=== PATIENT | female | born 1965 | race African-American/Black ===

== ENCOUNTER → 2016-12-27 | Outpatient (CLI) | payer MEDICARE, MEDICAID | LOC: RAD 17:09 | PROVIDERS: ATTEND Nurse Practitioner Family | DX: M54.5 Low back pain (principal) | CPT/HCPCS: 72114; 72200 ==

== ENCOUNTER → 2017-08-05 | Outpatient (CLI) | payer MEDICARE, MEDICAID ==
--- NOTE | 2017-08-05 19:04 | WOMENS IMAGING REPORT ---
EXAM DESCRIPTION: 3D SCREENING MAMMO BILAT COMPLETED DATE/TIME: 08/05/2017 11:20 am REASON FOR STUDY: SCREENING MAMMO Z12.31 ENCNTR SCREEN MAMMOGRAM FOR MALIGNANT NEOPLASM OF EDNA COMPARISON: Multiple since 2011 TECHNIQUE: Standard craniocaudal and mediolateral oblique views of each breast recorded using digita l acquisition and breast tomosynthesis. LIMITATIONS: None. FINDINGS: No masses, calcifications or architectural distortion. No areas of suspicion. Read with the assistance of CAD. .[facility] - R2 Cenova Version 1.3 .[facility] Imaging - R2 Cenova Version 1.3 .[facility] Imaging - R2 Cenova Version 2.4 .[facility] [place] R2 Cenova Version 2.4 .[facility] - R2 Carton Wrapper Version 9.2 IMPRESSION: NORMAL MAMMOGRAM. BIRADS 1. BREAST DENSITY: b. There are scattered areas of fibroglandular density. BIRAD: 1 NEGATIVE RECOMMENDATION: ROUTINE SCREENING Please continue yearly bilateral screening tomosynthesis in July 2018 COMMENT: The patient has been notified of the results by letter per MQSA requirements. Additional no tification policies are in place for contacting patient with suspicious or incomplete findings. Quality ID #225: The [employer] recommends an annual screening mammogram for women aged 40 years or over. This facility utilizes a reminder system to ensure that all patients receive reminder letters, and/or direct phone calls for appointments. This includes reminders for routine scr eening mammograms, diagnostic mammograms, or other Breast Imaging Interventions when appropriate. Th is patient will be placed in the appropriate reminder system. The [employer] (ACR) has developed recommendations for screening MRI of the breast s in certain patient populations, to be used in conjunction with mammography. Breast MRI surveillanc e may be appropriate for women with more than 20% lifetime risk of developing breast cancer as deter mined by genetic testing, significant family history of the disease, or history of mantle radiation f or Hodgkins Disease. ACR Practice Guidelines 2008. DBT Technology DBT is a type of tomographic mammography. With conventional mammography, overlapping breast tissue ma y make lesions difficult to detect, even with good compression. DBT uses an x-ray tube that rotates a round the breast, taking images at different angles. These images are then combined to create thin sl ices of the breast that the radiologist can view as a 3D reconstruction. The Ripl unit can perform full-field digital mammograms (2D imaging); or DBT (3D imaging); or both, in a combination mode that quickly performs both the mammogram and the tomosynthesis scan while the breast is still compressed. PQRS 6045F: Fluoroscopic imaging is not utilized for breast tomosynthesis. TECHNICAL DOCUMENTATION: FINDING NUMBER: (1) ASSESSMENT: (1) JOB ID: [id number] [employer]- All Rights Reserved
== END ==
LOC: WI 10:01
PROVIDERS: ATTEND Internal Medicine
DX: Z12.31 Encounter for screening mammogram for malignant neoplasm of breast (principal)
CPT/HCPCS: 77063; G0202; 77067

== ENCOUNTER → 2018-08-07 | Outpatient (CLI) | payer MEDICARE, MEDICAID ==
--- NOTE | 2018-08-07 11:36 | WOMENS IMAGING REPORT ---
EXAM DESCRIPTION: 3D SCREENING MAMMO BILAT COMPLETED DATE/TIME: 08/07/2018 11:21 am REASON FOR STUDY: BILATERAL SCREENING MAMMO 3D/Z12.31 Z12.31 ENCNTR SCREEN MAMMOGRAM FOR MALIGNANT NEOPLASM OF EDNA COMPARISON: 08/05/2017 and 12/28/2014. TECHNIQUE: Standard craniocaudal and mediolateral oblique views of each breast recorded using digita l acquisition and breast tomosynthesis. LIMITATIONS: None. FINDINGS: No masses, calcifications or architectural distortion. No areas of suspicion. Read with the assistance of CAD. .[facility] - R2 Cenova Version 1.3 .[facility] Imaging - R2 Cenova Version 1.3 .[facility] Imaging - R2 Cenova Version 2.4 .[facility] [place] R2 Cenova Version 2.4 .[facility] - R2 [employer] Meters Version 9.2 IMPRESSION: NORMAL MAMMOGRAM. BIRADS 1. BREAST DENSITY: b. There are scattered areas of fibroglandular density. BIRAD: 1 NEGATIVE RECOMMENDATION: ROUTINE SCREENING COMMENT: The patient has been notified of the results by letter per SA requirements. Additional no tification policies are in place for contacting patient with suspicious or incomplete findings. Quality ID #225: The [employer] recommends an annual screening mammogram for women aged 40 years or over. This facility utilizes a reminder system to ensure that all patients receive reminder letters, and/or direct phone calls for appointments. This includes reminders for routine scr eening mammograms, diagnostic mammograms, or other Breast Imaging Interventions when appropriate. Th is patient will be placed in the appropriate reminder system. The [employer] (ACR) has developed recommendations for screening MRI of the breast s in certain patient populations, to be used in conjunction with mammography. Breast MRI surveillanc e may be appropriate for women with more than 20% lifetime risk of developing breast cancer as deter mined by genetic testing, significant family history of the disease, or history of mantle radiation f or Hodgkins Disease. ACR Practice Guidelines 2008. DBT Technology DBT is a type of tomographic mammography. With conventional mammography, overlapping breast tissue ma y make lesions difficult to detect, even with good compression. DBT uses an x-ray tube that rotates a round the breast, taking images at different angles. These images are then combined to create thin sl ices of the breast that the radiologist can view as a 3D reconstruction. The [employer] unit can perform full-field digital mammograms (2D imaging); or DBT (3D imaging); or both, in a combination mode that quickly performs both the mammogram and the tomosynthesis scan while the breast is still compressed. PQRS 6045F: Fluoroscopic imaging is not utilized for breast tomosynthesis. TECHNICAL DOCUMENTATION: FINDING NUMBER: (1) ASSESSMENT: (1) JOB ID: [id number] [employer]- All Rights Reserved Reading location - IP/workstation name: [email or web address]
== END ==
LOC: WI 10:53
PROVIDERS: ATTEND Internal Medicine
DX: Z12.31 Encounter for screening mammogram for malignant neoplasm of breast (principal)
CPT/HCPCS: 77063; 77067

== ENCOUNTER → 2018-09-18 | Outpatient (CLI) | payer MEDICARE, MEDICAID ==
--- NOTE | 2018-09-18 15:17 | RADIOLOGY REPORT (SQ) ---
EXAM DESCRIPTION: CT ABD/PELVIS WITH IV ONLY COMPLETED DATE/TIME: 09/18/2018 1:40 pm REASON FOR STUDY: RIGHT LOWER QUADRANT PAIN R10.31 RIGHT LOWER QUADRANT PAIN COMPARISON: None. TECHNIQUE: CT scan of the abdomen and pelvis performed using helical scanning technique with dynamic intravenous contrast injection. No oral contrast. Images reviewed with lung, soft tissue, and bone windows. Reconstructed coronal and sagittal MPR images reviewed. Delayed images for evaluation of the urinary system also acquired. All images stored on PACS. All CT scanners at this facility use dose modulation, iterative reconstruction, and/or weight based d osing when appropriate to reduce radiation dose to as low as reasonably achievable (ALARA). [facility]: Dose Right [facility]: CareDose [facility]: Dose Right [facility]: Teradose 4D [facility]: WelVU CONTRAST TYPE AND DOSE: contrast/concentration: Isovue 350.00 mg/ml; Total Contrast Delivered: 100.0 ml; Total Saline Delivered: 72.0 ml RENAL FUNCTION: Creatinine 0.8 RADIATION DOSE: CT Rad equipment meets quality standard of care and radiation dose reduction techniq ues were employed. CTDIvol: 22.2 - 22.6 mGy. DLP: 2221 mGy-cm.. LIMITATIONS: None. FINDINGS: LOWER CHEST: There is limited opacification in the medial left base. LIVER: Normal size. No masses. No dilated ducts. SPLEEN: Normal size. No focal lesions. PANCREAS: No masses. No significant calcifications. No adjacent inflammation or peripancreatic fluid collections. Pancreatic duct not dilated. GALLBLADDER: No identified stones by CT criteria. No inflammatory changes to suggest cholecystitis. ADRENAL GLANDS: No significant masses or asymmetry. RIGHT KIDNEY AND URETER: No solid masses. No significant calcifications. No hydronephrosis or hyd roureter. LEFT KIDNEY AND URETER: No solid masses. No significant calcifications. No hydronephrosis or hydr oureter. AORTA AND VESSELS: No aneurysm. No dissection. Renal arteries, SMA, celiac without stenosis. RETROPERITONEUM: No retroperitoneal adenopathy, hemorrhage or masses. BOWEL AND PERITONEAL CAVITY: No masses or inflammatory changes. No free fluid or peritoneal masses. APPENDIX: Not identified. No pericecal inflammatory changes are present. PELVIS: There is a 7 cm well-circumscribed low-density mass in the left adnexal. This measures about 37 Hounsfield units. ABDOMINAL WALL: No masses. No hernias. BONES: No significant or acute findings. OTHER: No other significant finding. IMPRESSION: 1. Cannot exclude left lower lobe pneumonia. 2. There is no evidence of appendicitis. 3. 7 cm well-circumscribed left adnexal mass. Cannot exclude hemorrhagic ovarian cyst. Cannot excl ude ovarian neoplasm. Could conceivably represent a degenerated pedunculated uterine fibroid. COMMENT: Unsuccessfully attempted to call report to the ordering physician at 1511 hours on this marilia e. TECHNICAL DOCUMENTATION: JOB ID: [id number] Quality ID # 436: Final reports with documentation of one or more dose reduction techniques (e.g., Au tomated exposure control, adjustment of the mA and/or kV according to patient size, use of iterative reconstruction technique) 2010 [employer]- All Rights Reserved Reading location - IP/workstation name: [email or web address]
== END ==
LOC: RAD 13:10
PROVIDERS: ATTEND Internal Medicine
DX: R10.31 Right lower quadrant pain (principal); R19.00 Intra-abdominal and pelvic swelling, mass and lump, unspecified site
CPT/HCPCS: 74177; 82565

== ENCOUNTER → 2018-11-28 | Outpatient (CLI) | payer MEDICARE, MEDICAID ==
--- NOTE | 2018-11-28 16:29 | RADIOLOGY REPORT (SQ) ---
EXAM DESCRIPTION: CT CHEST WITHOUT COMPLETED DATE/TIME: 11/28/2018 2:49 pm REASON FOR STUDY: COPD (J44.9) J44.9 CHRONIC OBSTRUCTIVE PULMONARY DISEASE, UNSPECIFIED COMPARISON: CT abdomen pelvis 09/18/2018 Two-view chest 11/20/2011 TECHNIQUE: CT scan performed of the chest without intravenous contrast. Images reviewed with lung, soft tissue and bone windows. Reconstructed coronal and sagittal MPR images reviewed. All images st ored on PACS. All CT scanners at this facility use dose modulation, iterative reconstruction, and/or weight based d osing when appropriate to reduce radiation dose to as low as reasonably achievable (ALARA). [facility]: Dose Right [facility]: CareDose [facility]: Dose Right [facility]: Teradose 4D [facility]: 3TEN8 RADIATION DOSE: CT Rad equipment meets quality standard of care and radiation dose reduction techniq ues were employed. CTDIvol: 13.8 mGy. DLP: 473 mGy-cm. mGy. LIMITATIONS: No technical limitations. FINDINGS: LUNGS AND PLEURA: Diffuse bilateral alveolar and interstitial opacities are present throug hout both upper lobes, the right middle lobe, and both lower lobes. The most dense consolidation is present in the left lung base. No pleural effusions. No pneumothorax. Airways are patent. HILAR AND MEDIASTINAL STRUCTURES: Several small mediastinal lymph nodes are present along the prevasc ular, right paratracheal, precarinal, AP window, and bilateral hilar regions. These measure 1 cm or less in short axis. HEART AND VASCULAR STRUCTURES: No aneurysm. No pericardial effusion. UPPER ABDOMEN: No significant findings. Limited exam. THYROID AND OTHER SOFT TISSUES: No masses. No adenopathy. BONES: No significant finding. HARDWARE: None in the chest. OTHER: No other significant findings. IMPRESSION: Nonspecific bilateral alveolar and interstitial opacities most confluent at the left wayne g base. This finding along with adenopathy raises a question of sarcoidosis versus chronic pneumonit is. Atypical pneumonia should be considered. TECHNICAL DOCUMENTATION: JOB ID: [id number] Quality ID # 436: Final reports with documentation of one or more dose reduction techniques (e.g., Au tomated exposure control, adjustment of the mA and/or kV according to patient size, use of iterative reconstruction technique) 2010 [employer]- All Rights Reserved Reading location - IP/workstation name: [email or web address]
== END ==
LOC: RAD 14:26
PROVIDERS: ATTEND Internal Medicine
DX: J44.9 Chronic obstructive pulmonary disease, unspecified (principal)
CPT/HCPCS: 71250

== ENCOUNTER → 2018-12-05 | Outpatient (CLI) | payer MEDICARE, MEDICAID ==
--- NOTE | 2018-12-05 12:25 | RADIOLOGY REPORT (SQ) ---
EXAM DESCRIPTION: UPPER GI/SM BOWEL COMPLETED DATE/TIME: 12/05/2018 10:01 am REASON FOR STUDY: EPIGASTRIC PAIN (R10.13) R10.13 EPIGASTRIC PAIN COMPARISON: CT chest 11/28/2018 Two-view chest 11/20/2011 TECHNIQUE: Under fluoroscopic guidance, patient ingested effervescent granules followed by thick and thin barium. Fluoroscopic spot images and routine radiographic images acquired and stored on PACS. 12 MM BARIUM TABLET GIVEN: Yes. Patient vomited the 12 mm barium tablet LIMITATIONS: None. FLUOROSCOPY TIME: FLUORO TIME: 2.9 minutes 14 series of digital images saved to PACS. FINDINGS: NEUROMUSCULAR COORDINATION OF SWALLOW: Normal. No aspiration. ESOPHAGEAL MOTILITY: Normal peristalsis. No esophageal spasm. ESOPHAGEAL MUCOSA: Diffuse mucosal irregularity is seen throughout the cervical esophagus, with multi ple tiny surface mucosal ulcers and tiny mucosal surface nodules. This appearance could be seen in e sophageal candidiasis or thrush. Diffuse mucosal involvement of the esophagus with granulomatous dis ease/sarcoidosis is possible. Diffuse submucosal tumor is considered much less likely. GASTRO-ESOPHAGEAL JUNCTION: Tiny hiatal hernia. No Schatzki's ring. Gastroesophageal reflux. STOMACH: Normal without masses or ulcerations. GASTRIC OUTLET: No delay in emptying. Normal pylorus. DUODENAL BULB: Normal distention. No spasm or ulceration. DUODENUM: Mucosa normal. No extrinsic masses or malrotation. PROXIMAL SMALL BOWEL: Mucosa normal. No extrinsic masses or malrotation. NON-GI TRACT STRUCTURES: Visualized lung parenchyma is diffusely abnormal with extensive fibrosis/ sc arring in the bilateral perihilar regions. OTHER: No other significant finding. IMPRESSION: Diffusely abnormal esophagus, with diffuse involvement of multiple tiny ulcerations and granular/ nodular esophageal mucosa. Findings could represent esophagitis from Jennifer. Diffuse eso phageal involvement with sarcoidosis is possible. Diffuse tumor or reflux related esophagitis are co nsidered less likely. Small hiatal hernia with gastroesophageal reflux. Lung parenchymal perihilar scarring in/interstitial disease similar compared to CT chest 11/28/2018. Clinically correlate for sarcoidosis Remainder of the study is otherwise unremarkable. COMMENT: Quality ID 145: Final reports for procedures using fluoroscopy that document radiation exp osure indices, or exposure time and number of fluorographic images (if radiation exposure indices are not available) TECHNICAL DOCUMENTATION: JOB ID: [id number] [email or web address]- All Rights Reserved Reading location - IP/workstation name: [email or web address]
== END ==
LOC: RAD 08:19
PROVIDERS: ATTEND Internal Medicine
DX: K21.9 Gastro-esophageal reflux disease without esophagitis (principal); K44.9 Diaphragmatic hernia without obstruction or gangrene; R10.13 Epigastric pain
CPT/HCPCS: 74249

== ENCOUNTER 2018-12-17 15:30 | Emergency (ER) | payer MEDICARE, MEDICAID ==
[2018-12-17 15:58] VITALS: BP 143/93
[2018-12-17] MEDS ORDERED: ACETAMINOPHEN 325 MG TABLET PO ONE (16:05)
== END 2018-12-17 17:12 | disposition left against medical advice (07) ==
LOC: ER 15:30
DX: Z53.21 Procedure and treatment not carried out due to patient leaving prior to being seen by health care provider (principal); R53.1 Weakness

== ENCOUNTER 2018-12-18 17:56 | Inpatient (IN) | payer MEDICARE, MEDICAID ==
--- NOTE | 2018-12-18 21:22 | RADIOLOGY REPORT (SQ) ---
EXAM DESCRIPTION: XR CHEST 2 VIEWS COMPLETED DATE/TME: 12/18/2018 00:00 CLINICAL HISTORY: 53 years, Female, COUGH Findings: The heart is mildly enlarged. No pneumothorax. Multifocal bilateral upper lobe and bilateral lower lobe airspace disease. No significant pleural effusions. IMPRESSION: Multifocal pneumonia.
--- NOTE | 2018-12-18 21:30 | ER Document Report ---
ED Medical Screen (RME) - General Chief Complaint: Cough Stated Complaint: COUGH Time Seen by Provider: 12/18/18 21:25 Primary Care Provider: MARLENE SHETTY MD [Primary Care Provider] - Follow up as needed Notes: 53-year-old -Irish female coming in today with admissions orders from her primary care doctor. Still feeling short of breath after 10-day course of treatment for pneumonia. I have treated and performed a rapid initial assessment of this patient. A comprehensive ED assessment and evaluation of the patient, analysis of test results and completion of medical decision making process will be conducted by additional ED providers. PHYSICAL EXAMINATION: GENERAL: Well-appearing, well-nourished and in no acute distress. A&Ox4. Answers questions appropriately. LUNGS: Breath sounds clear to auscultation bilaterally and equal. No wheezes rales or rhonchi. HEART: Regular rate and rhythm without murmurs, rubs, gallops. ABDOMEN: Soft, nondistended abdomen. No guarding, no rebound. Normal bowel sounds present. No CVA tenderness bilaterally. + mild epigastric tenderness (cannot elicit thorough abd exam w/o table, however). Extremities: No cyanosis, clubbing, or edema b/l. NEUROLOGICAL: Normal speech, normal gait. PSYCH: Normal mood, normal affect. TRAVEL OUTSIDE OF THE [place] IN LAST 30 DAYS: No - Related Data Allergies/Adverse Reactions: ciprofloxacin [From Cipro] Allergy (Unknown, Verified 12/17/18 15:38) ciprofloxacin HCl [From Cipro] Allergy (Unknown, Verified 12/17/18 15:38) amoxicillin Allergy (Verified 12/17/18 15:38) Past Medical History - Social History Frequency of alcohol use: None Drug Abuse: None - Past Medical History Cardiac Medical History: Reports: Hx Hypertension Pulmonary Medical History: Denies: Hx Tuberculosis Neurological Medical History: Reports: Hx Cerebrovascular Accident - X2 Renal/ Medical History: Denies: Hx Peritoneal Dialysis Infectious Medical History: Reports: Hx HIV Past Surgical History: Reports: Hx Section, Hx Tubal Ligation. Denies: Hx Pacemaker - Immunizations Hx Diphtheria, Pertussis, Tetanus Vaccination: No Physical Exam - Vital signs Vitals: Temp Pulse Resp BP Pulse Ox 99.0 F 105 H 16 156/90 H 96 12/18/18 19:05 12/18/18 19:05 12/18/18 19:05 12/18/18 19:05 12/18/18 19:05 Course - Vital Signs Vital signs: Temp Pulse Resp BP Pulse Ox 99.0 F 105 H 16 156/90 H 96 12/18/18 19:05 12/18/18 19:05 12/18/18 19:05 12/18/18 19:05 12/18/18 19:05 Doctor's Discharge - Discharge Referrals: MARLENE SHETTY MD [Primary Care Provider] - Follow up as needed
[2018-12-18 22:49] LABS: ABSOLUTE EOSINOPHILS # (AUTO) 0.1 10^3/uL (0.0-0.6); ABSOLUTE LYMPHOCYTES (AUTO) 0.8 10^3/uL (0.5-4.7); ABSOLUTE MONOCYTES (AUTO) 0.5 10^3/uL (0.1-1.4); ABSOLUTE NEUT (AUTO) 3.3 10^3/uL (1.7-8.2); BASOPHILS % (AUTO) 0.7 % (0-2); EOSINOPHILS % (AUTO) 1.1 % (0-6); HEMATOCRIT 35.3 % (36.0-47.0); HEMOGLOBIN 12.3 g/dL (12.0-15.5); LYMPHOCYTES % (AUTO) 17.4 % (13-45); MEAN CORPUSCULAR HEMOGLOBIN 29.3 pg (27.0-33.4); MEAN CORPUSCULAR HGB CONC 34.8 g/dL (32.0-36.0); MEAN CORPUSCULAR VOLUME 84 fl (80-97); MONOCYTES % (AUTO) 9.6 % (3-13); PLATELET COUNT 341 10^3/uL (150-450); RED BLOOD COUNT 4.18 10^6/uL (3.72-5.28); RED CELL DISTRIBUTION WIDTH 14.1 % (11.5-14.0); SEGMENTED NEUTROPHILS % (AUTO) 71.2 % (42-78); TOTAL CELLS COUNTED % (AUTO) 100 %; WHITE BLOOD COUNT 4.7 10^3/uL (4.0-10.5)
--- NOTE | 2018-12-18 23:39 | RADIOLOGY REPORT (SQ) ---
EXAM DESCRIPTION: CT CHEST WITHOUT IV CONTRAST COMPLETED DATE/TME: 12/18/2018 23:04 CLINICAL HISTORY: 53 years, Female, diffuse parenchyma lung disease COMPARISON: 11/28/2018 CT chest TECHNIQUE: 275 Images stored on PACS. All CT scanners at this facility use dose modulation, iterative reconstruction, and/or weight based dosing when appropriate to reduce radiation dose to as low as reasonably achievable (ALARA). [facility]: Dose Right [facility]: CareDose [facility]: Dose Right [facility]: Teradose 4D [facility]: [employer] LIMITATIONS: None. FINDINGS: Evaluation of the mediastinum and hilum limited due to lack of IV contrast. No convincing evidence for mediastinal or hilar adenopathy. Heart size is stable. Limited evaluation of the upper abdomen shows a small hiatal hernia. Osseous structures are grossly intact. No pneumothorax. The visualized airways are patent. Rather extensive groundglass opacities bilaterally as well as diffuse interstitial changes, similar to the prior exam. A more dense area of consolidative change in the anterior right lung base, as before. No effusion. IMPRESSION: Little change from the 11/28/2018 exam. Extensive mixed interstitial and airspace opacities bilaterally. Given the chronicity of findings, findings could reflect nonspecific interstitial pneumonitis, hypersensitivity pneumonitis, sarcoidosis, with other etiologies not excluded. TECHNICAL DOCUMENTATION: Quality ID # 436: Final reports with documentation of one or more dose reduction techniques (e.g., Automated exposure control, adjustment of the mA and/or kV according to patient size, use of iterative reconstruction technique) copyright 2011 [employer]- All Rights Reserved
[2018-12-19 00:39] LABS: ABSOLUTE EOSINOPHILS # (AUTO) 0.1 10^3/uL (0.0-0.6); ABSOLUTE LYMPHOCYTES (AUTO) 0.7 10^3/uL (0.5-4.7); ABSOLUTE MONOCYTES (AUTO) 0.3 10^3/uL (0.1-1.4); ABSOLUTE NEUT (AUTO) 2.8 10^3/uL (1.7-8.2); BASOPHILS % (AUTO) 0.4 % (0-2); EOSINOPHILS % (AUTO) 1.3 % (0-6); HEMATOCRIT 34.3 % (36.0-47.0); HEMOGLOBIN 11.6 g/dL (12.0-15.5); LYMPHOCYTES % (AUTO) 19.1 % (13-45); MEAN CORPUSCULAR HEMOGLOBIN 28.4 pg (27.0-33.4); MEAN CORPUSCULAR HGB CONC 33.8 g/dL (32.0-36.0); MEAN CORPUSCULAR VOLUME 84 fl (80-97); MONOCYTES % (AUTO) 8.9 % (3-13); PLATELET COUNT 291 10^3/uL (150-450); RED BLOOD COUNT 4.09 10^6/uL (3.72-5.28); SEGMENTED NEUTROPHILS % (AUTO) 70.3 % (42-78); TOTAL CELLS COUNTED % (AUTO) 100 %; WHITE BLOOD COUNT 3.9 10^3/uL (4.0-10.5)
[2018-12-19 00:39] LABS: ARTERIAL BLOOD BASE EXCESS 2.6 mmol/L; ARTERIAL BLOOD H2CO3 1.09 mmol/L (1.05-1.35); ARTERIAL BLOOD O2 SATURATION 94.3 % (94-98); ARTERIAL BLOOD PCO2 36.1 mmHg (35-45); ARTERIAL BLOOD PH 7.48 (7.35-7.45); ARTERIAL BLOOD TOTAL CO2 27.1 mmol/L (21-25)
[2018-12-19 00:45] LABS: ARTERIAL BLOOD FIO2 ROOM AIR
[2018-12-19 00:45] LABS: ALANINE AMINOTRANSFERASE 20 U/L (9-52); ALBUMIN 3.3 g/dL (3.5-5.0); ALKALINE PHOSPHATASE 54 U/L (38-126); ANION GAP 8 (5-19); ASPARTATE AMINO TRANSFERASE 26 U/L (14-36); BILIRUBIN,DIRECT 0.2 mg/dL (0.0-0.4); BILIRUBIN,TOTAL 0.2 mg/dL (0.2-1.3); BLOOD UREA NITROGEN 9 mg/dL (7-20); CALCIUM 8.7 mg/dL (8.4-10.2); CARBON DIOXIDE 30 mmol/L (22-30); CHLORIDE 103 mmol/L (98-107); GLUCOSE 94 mg/dL (75-110); POTASSIUM 3.6 mmol/L (3.6-5.0); SODIUM 140.7 mmol/L (137-145); TOTAL PROTEIN 7.4 g/dL (6.3-8.2)
[2018-12-19 00:56] LABS: TROPONIN I 0.018 ng/mL
[2018-12-19] MEDS ORDERED: LEVALBUTEROL HCL NEB 1.25 MG/3 ML AMPUL NEB PRN (01:00)
[2018-12-19] MEDS ORDERED: PREGABALIN 50 MG CAPSULE PO PRN (16:21)
[2018-12-19] MEDS ORDERED: (PENDING PHARMACY ID) (Oxycodone Hcl/Acetaminophen [Percocet 10-325 Mg Tablet] 1 EACH) PO PRN (16:21)
[2018-12-19] MEDS ORDERED: ALBUTEROL SULFATE HFA (90 MCG/PUFF) 200 PUFF/8.5 GM MDI IH PRN (16:21)
[2018-12-19] MEDS ORDERED: (PENDING PHARMACY ID) (Carvedilol [Coreg 25 Mg Tablet] 1 TAB) PO SCH (18:00)
[2018-12-19] MEDS ORDERED: SULFAMETHOXAZOLE/TRIMETHOPRIM 480 MG in DEXTROSE 5%-WATER 1000 ML 750 ML IV SCH (18:00)
[2018-12-19] MEDS: PREDNISONE 20 MG TABLET PO SCH (18:35)
[2018-12-19] MEDS: SULFAMETHOXAZOLE/TRIMETHOPRIM 480 MG in DEXTROSE 5%-WATER 1000 ML 750 ML IV SCH (18:35)
--- NOTE | 2018-12-19 20:06 | PDOC H&P ---
History of Present Illness Admission Date/PCP: 12/18/18 22:06 MARLENE SHETTY MD History of Present Illness: ZAIRE STEELE is a 53 year old female ,She has HIV disease, she was supposed to be on antiretroviral therapy for HIV but apparently she has not been taking antiretroviral agent for more than 3 months. I saw her in the office about 4 weeks ago when she came for evaluation of respiratory symptoms, she had multiple office visits for evaluation she was treated with various antibiotic including azithromycin, amoxicillin in fact she developed allergy reaction to amoxicillin I saw the patient in the office on multiple occasions for evaluation of respiratory symptoms during one of the evaluation I ordered a CT chest, CT chest demonstrated bilateral diffuse parenchymal infiltrate with enlarged lymph nodes in the mediastinum and the hilum, I suspected that she may have sarc oidosis. I thought she was compliant with antiretroviral agent she follows with infectious disease in [place] for the management of the HIV infection. I used to manage her HIV in the office with [facility] but the virus became resistant to the medication with increased HIV RNA titer and decreased CD4 count, at that point the patient was referred to infectious disease for management ,she was initiated on a new medication ,I am not exactly sure what medication she was ,I assume she was following with infectious disease for HIV infection.She came to the office for evaluation of shortness of breath, she was admitted directly to the hospital a repeat CT chest demonstrated bilateral diffuse parenchymal infiltrates no different from the previous CT chest and there was minimal lymph node enlargement. The pharmacy reconciled patient outpatient medication and the reconciled medication does not contain any antiretroviral agents suggesting to me that she has not been compliant the RN ask her directly she admitted not to have been on the medication for more than 3 months. It is very interesting because about 3 weeks ago I asked specifically if she was adherent with antiretroviral agent and she says she was ,so apparently she has not been compliant ,so the diffuse infiltrate on the chest x- ray could represent PCP pneumonia due to immunocompromised condition. The HIV RNA viral load and the T lymphocytes CD4 count is pending the blood gas that was done showed a PO2 of less than 60. Past Medical History Cardiac Medical History: Reports: Hypertension Pulmonary Medical History: Reports: Asthma Infectious Medical History: Reports: HIV Past Surgical History Past Surgical History: Reports: Section, Tubal Ligation Social History Smoking Status: Never Smoker Hx Recreational Drug Use: No Hx Prescription Drug Abuse: No - Advance Directive Resuscitation Status: Full Code Family History Parental Family History Reviewed: Yes Children Family History Reviewed: Yes Sibling(s) Family History Reviewed.: Yes Medication/Allergy Home Medications: Albuterol Sulfate [Proair Hfa Inhalation Aerosol 8.5 gm Mdi] 2 puff IH Q6HP PRN 12/19/18 Carvedilol [Coreg 25 mg Tablet] 1 tab PO DAILY 12/19/18 Fluticasone/Umeclidin/Vilanter [Trelegy 100-62.5-25 Mcg Ellipta 14 Dose/Dpi] 1 each PO DAILYP PRN 12/19/18 Oxycodone HCl/Acetaminophen [Percocet 10-325 Mg Tablet] 1 each PO TIDP PRN 12/19/18 Pregabalin [Lyrica 50 Mg Capsule] 50 mg PO DAILYP PRN 12/19/18 Pregabalin [Lyrica 50 Mg Capsule] 50 mg PO QHS 12/19/18 Allergies/Adverse Reactions: metronidazole [From Flagyl] Allergy (Severe, Verified 12/18/18 21:46) ciprofloxacin [From Cipro] Allergy (Unknown, Verified 12/17/18 15:38) ciprofloxacin HCl [From Cipro] Allergy (Unknown, Verified 12/17/18 15:38) Review of Systems Constitutional: PRESENT: chills Eyes: ABSENT: visual disturbances Ears: ABSENT: hearing changes Cardiovascular: ABSENT: chest pain, dyspnea on exertion, edema, orthropnea, palpitations Respiratory: PRESENT: cough, dyspnea Gastrointestinal: PRESENT: dysphagia. ABSENT: abdominal pain, constipation, diarrhea, hematemesis, hematochezia, nausea, vomiting Genitourinary: ABSENT: dysuria, hematuria Musculoskeletal: ABSENT: joint swelling Integumentary: ABSENT: rash, wounds Neurological: ABSENT: abnormal gait, abnormal speech, confusion, dizziness, focal weakness, syncope Psychiatric: ABSENT: anxiety, depression, homidical ideation, suicidal ideation Endocrine: ABSENT: cold intolerance, heat intolerance, menstrual abnormalities, polydipsia, polyuria Hematologic/Lymphatic: ABSENT: easy bleeding, easy bruising, lymphadenopathy Physical Exam Vital Signs: Temp Pulse Resp BP Pulse Ox 101.5 F H 95 18 149/91 H 94 12/19/18 15:19 12/19/18 15:19 12/19/18 15:19 12/19/18 15:19 12/19/18 15:19 Intake & Output 12/18/18 12/19/18 12/20/18 06:59 06:59 06:59 Intake Total 222 360 Balance 222 360 Weight 100.8 kg General appearance: PRESENT: mild distress Head exam: PRESENT: atraumatic, normocephalic Eye exam: PRESENT: conjunctiva pink, EOMI, PERRLA Ear exam: PRESENT: normal external ear exam Mouth exam: PRESENT: moist, tongue midline Neck exam: PRESENT: full ROM Respiratory exam: PRESENT: rhonchi Cardiovascular exam: PRESENT: RRR, +S1, +S2 Pulses: PRESENT: normal dorsalis pedis pul, +2 pedal pulses bilateral Vascular exam: PRESENT: normal capillary refill GI/Abdominal exam: PRESENT: normal bowel sounds, soft Rectal exam: PRESENT: deferred Neurological exam: PRESENT: alert, CN II-XII grossly intact Psychiatric exam: PRESENT: appropriate affect, normal mood Skin exam: PRESENT: dry, intact, warm Results Laboratory Results: 12/19/18 00:09 12/19/18 00:09 12/18/18 12/18/18 12/19/18 22:30 22:30 00:09 WBC 4.7 RBC 4.18 Hgb 12.3 Hct 35.3 L MCV 84 MCH 29.3 MCHC 34.8 RDW 14.1 H Plt Count 341 Seg Neutrophils % 71.2 Lymphocytes % 17.4 Monocytes % 9.6 Eosinophils % 1.1 Basophils % 0.7 Absolute Neutrophils 3.3 Absolute Lymphocytes 0.8 Absolute Monocytes 0.5 Absolute Eosinophils 0.1 Absolute Basophils 0.0 Carbonic Acid HCO3/H2CO3 Ratio ABG pH ABG pCO2 ABG pO2 ABG HCO3 ABG O2 Saturation ABG Base Excess FiO2 Sodium Cancelled 140.7 Potassium Cancelled 3.6 Chloride Cancelled 103 Carbon Dioxide Cancelled 30 Anion Gap Cancelled 8 BUN Cancelled 9 Creatinine Cancelled 0.55 Est GFR ( Amer) Cancelled > 60 Est GFR (Non-Af Amer) Cancelled > 60 Glucose Cancelled 94 Calcium Cancelled 8.7 Total Bilirubin Cancelled 0.2 AST Cancelled 26 ALT Cancelled 20 Alkaline Phosphatase Cancelled 54 Total Protein Cancelled 7.4 Albumin Cancelled 3.3 L 12/19/18 12/19/18 00:09 00:25 WBC 3.9 L RBC 4.09 Hgb 11.6 L Hct 34.3 L MCV 84 MCH 28.4 MCHC 33.8 RDW 14.0 Plt Count 291 Seg Neutrophils % 70.3 Lymphocytes % 19.1 Monocytes % 8.9 Eosinophils % 1.3 Basophils % 0.4 Absolute Neutrophils 2.8 Absolute Lymphocytes 0.7 Absolute Monocytes 0.3 Absolute Eosinophils 0.1 Absolute Basophils 0.0 Carbonic Acid 1.09 HCO3/H2CO3 Ratio 23:1 ABG pH 7.48 H ABG pCO2 36.1 ABG pO2 66.0 L ABG HCO3 26.0 H ABG O2 Saturation 94.3 ABG Base Excess 2.6 FiO2 ROOM AIR Sodium Potassium Chloride Carbon Dioxide Anion Gap BUN Creatinine Est GFR ( Amer) Est GFR (Non-Af Amer) Glucose Calcium Total Bilirubin AST ALT Alkaline Phosphatase Total Protein Albumin 12/18/18 12/19/18 22:30 00:09 Troponin I Cancelled 0.018 NT-Pro-B Natriuret Pep Cancelled 1200 H Impressions: Chest X-Ray 12/18/18 00:00 IMPRESSION: Multifocal pneumonia. Chest CT 12/18/18 23:04 IMPRESSION: Little change from the 11/28/2018 exam. Extensive mixed interstitial and airspace opacities bilaterally. Given the chronicity of findings, findings could reflect nonspecific interstitial pneumonitis, hypersensitivity pneumonitis, sarcoidosis, with other etiologies not excluded. 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
[2018-12-19] MEDS: ACETAMINOPHEN 325 MG TABLET PO PRN (20:11)
--- NOTE | 2018-12-19 20:17 | PDOC PROGRESS REPORT ---
Subjective Progress Note for:: 12/19/18 Subjective:: Patient was seen by the bedside, she was admitted yesterday, there is no new complaints. Reason For Visit: PERSISTENT DIFFUSE PARENCHYMA LUNG DISEASE Physical Exam Vital Signs: Temp Pulse Resp BP Pulse Ox 101.5 F H 95 18 149/91 H 94 12/19/18 15:19 12/19/18 15:19 12/19/18 15:19 12/19/18 15:19 12/19/18 15:19 Intake & Output 12/18/18 12/19/18 12/20/18 06:59 06:59 06:59 Intake Total 222 360 Balance 222 360 Weight 100.8 kg General appearance: PRESENT: no acute distress Eye exam: PRESENT: PERRLA Respiratory exam: PRESENT: clear to auscultation gael Cardiovascular exam: PRESENT: +S1, +S2 Neurological exam: PRESENT: alert, CN II-XII grossly intact Results Laboratory Results: 12/19/18 00:09 12/19/18 00:09 12/18/18 12/18/18 12/19/18 22:30 22:30 00:09 WBC 4.7 RBC 4.18 Hgb 12.3 Hct 35.3 L MCV 84 MCH 29.3 MCHC 34.8 RDW 14.1 H Plt Count 341 Seg Neutrophils % 71.2 Lymphocytes % 17.4 Monocytes % 9.6 Eosinophils % 1.1 Basophils % 0.7 Absolute Neutrophils 3.3 Absolute Lymphocytes 0.8 Absolute Monocytes 0.5 Absolute Eosinophils 0.1 Absolute Basophils 0.0 Carbonic Acid HCO3/H2CO3 Ratio ABG pH ABG pCO2 ABG pO2 ABG HCO3 ABG O2 Saturation ABG Base Excess FiO2 Sodium Cancelled 140.7 Potassium Cancelled 3.6 Chloride Cancelled 103 Carbon Dioxide Cancelled 30 Anion Gap Cancelled 8 BUN Cancelled 9 Creatinine Cancelled 0.55 Est GFR ( Amer) Cancelled > 60 Est GFR (Non-Af Amer) Cancelled > 60 Glucose Cancelled 94 Calcium Cancelled 8.7 Total Bilirubin Cancelled 0.2 AST Cancelled 26 ALT Cancelled 20 Alkaline Phosphatase Cancelled 54 Total Protein Cancelled 7.4 Albumin Cancelled 3.3 L 12/19/18 12/19/18 00:09 00:25 WBC 3.9 L RBC 4.09 Hgb 11.6 L Hct 34.3 L MCV 84 MCH 28.4 MCHC 33.8 RDW 14.0 Plt Count 291 Seg Neutrophils % 70.3 Lymphocytes % 19.1 Monocytes % 8.9 Eosinophils % 1.3 Basophils % 0.4 Absolute Neutrophils 2.8 Absolute Lymphocytes 0.7 Absolute Monocytes 0.3 Absolute Eosinophils 0.1 Absolute Basophils 0.0 Carbonic Acid 1.09 HCO3/H2CO3 Ratio 23:1 ABG pH 7.48 H ABG pCO2 36.1 ABG pO2 66.0 L ABG HCO3 26.0 H ABG O2 Saturation 94.3 ABG Base Excess 2.6 FiO2 ROOM AIR Sodium Potassium Chloride Carbon Dioxide Anion Gap BUN Creatinine Est GFR ( Amer) Est GFR (Non-Af Amer) Glucose Calcium Total Bilirubin AST ALT Alkaline Phosphatase Total Protein Albumin 12/18/18 12/19/18 22:30 00:09 Troponin I Cancelled 0.018 NT-Pro-B Natriuret Pep Cancelled 1200 H Impressions: Chest X-Ray 12/18/18 00:00 IMPRESSION: Multifocal pneumonia. Chest CT 12/18/18 23:04 IMPRESSION: Little change from the 11/28/2018 exam. Extensive mixed interstitial and airspace opacities bilaterally. Given the chronicity of findings, findings could reflect nonspecific interstitial pneumonitis, hypersensitivity pneumonitis, sarcoidosis, with other etiologies not excluded. 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
[2018-12-19] MEDS ORDERED: OXYCODONE-ACETAMINOPHEN 5-325 MG TABLET PO PRN (20:56)
[2018-12-19] MEDS ORDERED: OXYCODONE HCL IR 5 MG TABLET PO PRN (20:57)
[2018-12-19] MEDS: CARVEDILOL 12.5 MG TABLET PO SCH (21:51)
[2018-12-19] MEDS: PREGABALIN 50 MG CAPSULE PO SCH (21:51)
[2018-12-19] MEDS: FLUTICASONE/UMECLIDIN/VILANTER 100-62.5-25 MCG/DOSE IH SCH (21:54)
[2018-12-20] MEDS: SULFAMETHOXAZOLE/TRIMETHOPRIM 480 MG in DEXTROSE 5%-WATER 1000 ML 750 ML IV SCH ×4 (01:53→20:02)
[2018-12-20] MEDS: FLUTICASONE/UMECLIDIN/VILANTER 100-62.5-25 MCG/DOSE IH SCH (10:06)
[2018-12-20] MEDS: PREDNISONE 20 MG TABLET PO SCH ×2 (10:06→18:35)
[2018-12-20] MEDS: CARVEDILOL 12.5 MG TABLET PO SCH ×2 (10:06→21:37)
--- NOTE | 2018-12-20 16:11 | PDOC PROGRESS REPORT ---
Subjective Progress Note for:: 12/20/18 Subjective:: Patient was seen by the bedside, she is showing signs of improvement, lab data not back yet Reason For Visit: PCP PNEUMONIA,ACUTE HYPOXEMIC RESPIRATORY FAILURE Physical Exam Vital Signs: Temp Pulse Resp BP Pulse Ox 98.0 F 67 16 108/70 93 12/20/18 08:00 12/20/18 08:00 12/20/18 08:00 12/20/18 08:00 12/20/18 08:00 Intake & Output 12/19/18 12/20/18 12/21/18 06:59 06:59 06:59 Intake Total 222 2320 750 Balance 222 2320 750 Weight 100.8 kg General appearance: PRESENT: no acute distress Eye exam: PRESENT: PERRLA Respiratory exam: PRESENT: rhonchi Cardiovascular exam: PRESENT: +S1, +S2 GI/Abdominal exam: PRESENT: soft Neurological exam: PRESENT: alert Results Laboratory Results: 12/19/18 00:09 12/19/18 00:09 12/18/18 12/19/18 22:30 00:09 Troponin I Cancelled 0.018 NT-Pro-B Natriuret Pep Cancelled 1200 H Impressions: Chest X-Ray 12/18/18 00:00 IMPRESSION: Multifocal pneumonia. Chest CT 12/18/18 23:04 IMPRESSION: Little change from the 11/28/2018 exam. Extensive mixed interstitial and airspace opacities bilaterally. Given the chronicity of findings, findings could reflect nonspecific interstitial pneumonitis, hypersensitivity pneumonitis, sarcoidosis, with other etiologies not excluded. 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 Is this a current diagnosis for this admission?: Yes Plan: Continue Bactrim for PCP pneumonia (3) HIV (human immunodeficiency virus infection) Qualifiers: HIV symptom status: symptomatic Qualified Code(s): B20 - Human immunodeficiency virus [HIV] disease Is this a current diagnosis for this admission?: Yes Plan: Patient has not been taking any anti-retroviral agent for many months now so clearly she is immunosuppressed at this point we could not obtain the last medication that she was on for the HIV infection so she will be started on combination nucleoside reverse transcriptase inhibitors in this hospital and Emtricitabine and tenofovir is formulary that is the background treatment for HIV infection in addition to Proteus inhibitor or integrates inhibitor in this hospital raltegravir is formulary this will be boosted with ritonavir
[2018-12-20] MEDS: EMTRICITABINE/TENOFOVIR 200-300 MG TABLET PO SCH (18:35)
[2018-12-20] MEDS: RALTEGRAVIR POTASSIUM 400 MG TABLET PO SCH (18:35)
[2018-12-20] MEDS: RITONAVIR 100 MG TABLET PO SCH (18:35)
--- NOTE | 2018-12-20 19:08 | RADIOLOGY REPORT (SQ) ---
EXAM DESCRIPTION: CHEST 2 VIEWS COMPLETED DATE/TIME: 12/20/2018 6:39 pm REASON FOR STUDY: pneumonia COMPARISON: 12/18/2018 TECHNIQUE: Frontal and lateral radiographic views of the chest acquired. NUMBER OF VIEWS: Two view. LIMITATIONS: None. FINDINGS: LUNGS AND PLEURA: No pneumothorax. Increasing left consolidation. Diffuse parenchymal in terstitial and confluent opacities remain bilaterally. No significant Pleural effusion. MEDIASTINUM AND HILAR STRUCTURES: Stable. HEART AND VASCULAR STRUCTURES: Stable. BONES: No acute findings. HARDWARE: None in the chest. OTHER: No other significant finding. IMPRESSION: Increasing left pulmonary consolidation. Diffuse parenchymal interstitial and confluent opacities remain bilaterally. No significant Pleural effusion. TECHNICAL DOCUMENTATION: JOB ID: [id number] [place]-72 2010 [employer]- All Rights Reserved Reading location - IP/workstation name: [facility]
[2018-12-20] MEDS ORDERED: FUROSEMIDE INJ/PF 40 MG/4 ML SDV IV ONE (21:00)
[2018-12-20] MEDS: PREGABALIN 50 MG CAPSULE PO SCH (21:37)
[2018-12-21] MEDS: SULFAMETHOXAZOLE/TRIMETHOPRIM 480 MG in DEXTROSE 5%-WATER 1000 ML 750 ML IV SCH ×5 (02:00→23:27)
[2018-12-21] MEDS: CARVEDILOL 12.5 MG TABLET PO SCH ×2 (09:43→22:44)
[2018-12-21] MEDS: RALTEGRAVIR POTASSIUM 400 MG TABLET PO SCH ×2 (09:44→18:24)
[2018-12-21] MEDS: PREDNISONE 20 MG TABLET PO SCH ×2 (09:44→18:24)
[2018-12-21] MEDS: RITONAVIR 100 MG TABLET PO SCH (09:44)
[2018-12-21] MEDS: FLUTICASONE/UMECLIDIN/VILANTER 100-62.5-25 MCG/DOSE IH SCH (09:45)
[2018-12-21] MEDS: EMTRICITABINE/TENOFOVIR 200-300 MG TABLET PO SCH (09:46)
[2018-12-21 11:24] LABS: HIV-1 RNA LOG10.. 3.844 (.); HIV-1 RNA PCR QUANT 6990 copies/mL (.)
[2018-12-21 13:12] LABS: ABSOLUTE LYMPHOCYTES (AUTO) 0.5 10^3/uL (0.5-4.7); ABSOLUTE MONOCYTES (AUTO) 0.2 10^3/uL (0.1-1.4); ABSOLUTE NEUT (AUTO) 8.2 10^3/uL (1.7-8.2); BASOPHILS % (AUTO) 0.4 % (0-2); HEMATOCRIT 30.7 % (36.0-47.0); HEMOGLOBIN 10.5 g/dL (12.0-15.5); LYMPHOCYTES % (AUTO) 5.7 % (13-45); MEAN CORPUSCULAR HEMOGLOBIN 28.6 pg (27.0-33.4); MEAN CORPUSCULAR HGB CONC 34.1 g/dL (32.0-36.0); MEAN CORPUSCULAR VOLUME 84 fl (80-97); MONOCYTES % (AUTO) 2.5 % (3-13); PLATELET COUNT 280 10^3/uL (150-450); RED BLOOD COUNT 3.65 10^6/uL (3.72-5.28); RED CELL DISTRIBUTION WIDTH 14.2 % (11.5-14.0); SEGMENTED NEUTROPHILS % (AUTO) 91.4 % (42-78); TOTAL CELLS COUNTED % (AUTO) 100 %
[2018-12-21 13:29] LABS: ALANINE AMINOTRANSFERASE < 6 U/L (9-52); ALBUMIN 2.9 g/dL (3.5-5.0); ALKALINE PHOSPHATASE 41 U/L (38-126); ANION GAP 9 (5-19); ASPARTATE AMINO TRANSFERASE 21 U/L (14-36); BILIRUBIN,DIRECT 0.2 mg/dL (0.0-0.4); BILIRUBIN,TOTAL 0.2 mg/dL (0.2-1.3); BLOOD UREA NITROGEN 8 mg/dL (7-20); CALCIUM 8.7 mg/dL (8.4-10.2); CARBON DIOXIDE 25 mmol/L (22-30); CHLORIDE 105 mmol/L (98-107); GLUCOSE 122 mg/dL (75-110); POTASSIUM 4.5 mmol/L (3.6-5.0); SODIUM 138.7 mmol/L (137-145); TOTAL PROTEIN 6.6 g/dL (6.3-8.2)
--- NOTE | 2018-12-21 13:36 | RADIOLOGY REPORT (SQ) ---
EXAM DESCRIPTION: CHEST 2 VIEWS COMPLETED DATE/TIME: 12/21/2018 12:57 pm REASON FOR STUDY: pneumonia COMPARISON: 12/20/2018 TECHNIQUE: Frontal and lateral radiographic views of the chest acquired. NUMBER OF VIEWS: Two view. LIMITATIONS: None. FINDINGS: LUNGS AND PLEURA: No pneumothorax. Similar bilateral consolidation, left greater than rig ht. No significant pleural effusion. MEDIASTINUM AND HILAR STRUCTURES: Stable. HEART AND VASCULAR STRUCTURES: Stable. BONES: No acute findings. HARDWARE: None in the chest. OTHER: No other significant finding. IMPRESSION: Similar bilateral consolidation, left greater than right. No significant pleural effusi on. TECHNICAL DOCUMENTATION: JOB ID: [id number] [place]-72 2010 [employer]- All Rights Reserved Reading location - IP/workstation name: [facility]
--- NOTE | 2018-12-21 13:59 | PDOC PROGRESS REPORT ---
Subjective Progress Note for:: 12/21/18 Subjective:: Patient seen by the bedside, chest x-ray showed worsening infiltrate on both lung ochoa, now stabilized, the HIV RNA titer result came back as expected is over 6000 copies per cc of blood. She has presumed PCP pneumonia, it is not confirmed ,induced sputum could not be obtained in this patient, it is more likely that she has PCP pneumonia because she has not been taking the antiretroviral agent for over 3 months, the pattern of the infiltrate on the chest x-ray is consistent with PCP pneumonia. Patient is also improving clinically though the chest x-ray is worsening, this is expected in PCP pneumonia, chest x-ray will get worse before it gets better, she will continue prednisone as recommended for PCP pneumonia with hypoxemia the PO2 is less than 70 Reason For Visit: PCP PNEUMONIA,ACUTE HYPOXEMIC RESPIRATORY FAILURE Physical Exam Vital Signs: Temp Pulse Resp BP Pulse Ox 98.1 F 71 16 112/76 96 12/21/18 11:00 12/21/18 11:00 12/21/18 11:00 12/21/18 11:00 12/21/18 11:00 Intake & Output 12/20/18 12/21/18 12/22/18 06:59 06:59 06:59 Intake Total 2320 4670 750 Balance 2320 4670 750 General appearance: PRESENT: no acute distress, well-developed, well-nourished Head exam: PRESENT: atraumatic, normocephalic Eye exam: PRESENT: conjunctiva pink, EOMI, PERRLA Ear exam: PRESENT: normal external ear exam Mouth exam: PRESENT: moist, tongue midline Neck exam: PRESENT: full ROM Respiratory exam: PRESENT: crackles Cardiovascular exam: PRESENT: RRR, +S1, +S2 Pulses: PRESENT: normal dorsalis pedis pul, +2 pedal pulses bilateral Vascular exam: PRESENT: normal capillary refill GI/Abdominal exam: PRESENT: normal bowel sounds, soft Rectal exam: PRESENT: deferred Neurological exam: PRESENT: alert, awake, oriented to person, oriented to place, oriented to time, oriented to situation, CN II-XII grossly intact Psychiatric exam: PRESENT: appropriate affect, normal mood Skin exam: PRESENT: dry, intact, warm Results Laboratory Results: 12/21/18 12:45 12/21/18 12:40 12/21/18 12/21/18 12:40 12:45 WBC 9.0 D RBC 3.65 L Hgb 10.5 L Hct 30.7 L MCV 84 MCH 28.6 MCHC 34.1 RDW 14.2 H Plt Count 280 Seg Neutrophils % 91.4 H Lymphocytes % 5.7 L Monocytes % 2.5 L Eosinophils % 0.0 Basophils % 0.4 Absolute Neutrophils 8.2 Absolute Lymphocytes 0.5 Absolute Monocytes 0.2 Absolute Eosinophils 0.0 Absolute Basophils 0.0 Sodium 138.7 Potassium 4.5 Chloride 105 Carbon Dioxide 25 Anion Gap 9 BUN 8 Creatinine 0.77 Est GFR ( Amer) > 60 Est GFR (Non-Af Amer) > 60 Glucose 122 H Calcium 8.7 Total Bilirubin 0.2 AST 21 ALT < 6 L Alkaline Phosphatase 41 Total Protein 6.6 Albumin 2.9 L 12/18/18 12/19/18 22:30 00:09 Troponin I Cancelled 0.018 NT-Pro-B Natriuret Pep Cancelled 1200 H Impressions: Chest CT 12/18/18 23:04 IMPRESSION: Little change from the 11/28/2018 exam. Extensive mixed interstitial and airspace opacities bilaterally. Given the chronicity of findings, findings could reflect nonspecific interstitial pneumonitis, hypersensitivity pneumonitis, sarcoidosis, with other etiologies not excluded. TECHNICAL DOCUMENTATION: Quality ID # 436: Final reports with documentation of one or more dose reduction techniques (e.g., Automated exposure control, adjustment of the mA and/or kV according to patient size, use of iterative reconstruction technique) copyright 2011 [employer]- All Rights Reserved Chest X-Ray 12/21/18 00:00 IMPRESSION: Similar bilateral consolidation, left greater than right. No significant pleural effusion. 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 Is this a current diagnosis for this admission?: Yes Plan: She will continue Bactrim intravenously for presumed PCP pneumonia (3) HIV (human immunodeficiency virus infection) Qualifiers: HIV symptom status: symptomatic Qualified Code(s): B20 - Human immunodeficiency virus [HIV] disease Is this a current diagnosis for this admission?: Yes Plan: Patient has not been taking any anti-retroviral agent for many months now so clearly she is immunosuppressed at this point we could not obtain the last medication that she was on for the HIV infection so she will continue combination nucleoside reverse transcriptase inhibitors,in this hospital, Emtricitabine and tenofovir is formulary that is the background treatment for HIV infection in addition to Proteus inhibitor or integrates inhibitor, in this hospital raltegravir is formulary this will be boosted with ritonavir
[2018-12-21] MEDS: PREGABALIN 50 MG CAPSULE PO SCH (22:44)
[2018-12-22] MEDS: SULFAMETHOXAZOLE/TRIMETHOPRIM 480 MG in DEXTROSE 5%-WATER 1000 ML 750 ML IV SCH ×3 (06:02→18:15)
[2018-12-22] MEDS: EMTRICITABINE/TENOFOVIR 200-300 MG TABLET PO SCH (10:17)
[2018-12-22] MEDS: FLUTICASONE/UMECLIDIN/VILANTER 100-62.5-25 MCG/DOSE IH SCH (10:17)
[2018-12-22] MEDS: RITONAVIR 100 MG TABLET PO SCH (10:17)
[2018-12-22] MEDS: RALTEGRAVIR POTASSIUM 400 MG TABLET PO SCH ×2 (10:17→18:14)
[2018-12-22] MEDS: PREDNISONE 20 MG TABLET PO SCH ×2 (10:17→18:14)
[2018-12-22] MEDS: CARVEDILOL 12.5 MG TABLET PO SCH ×2 (10:17→22:44)
[2018-12-22 12:56] LABS: ABSOLUTE BASOPHILS # (AUTO) 0.1 10^3/uL (0.0-0.2); ABSOLUTE LYMPHOCYTES (AUTO) 0.6 10^3/uL (0.5-4.7); ABSOLUTE MONOCYTES (AUTO) 0.5 10^3/uL (0.1-1.4); ABSOLUTE NEUT (AUTO) 9.2 10^3/uL (1.7-8.2); BASOPHILS % (AUTO) 0.7 % (0-2); HEMATOCRIT 30.8 % (36.0-47.0); HEMOGLOBIN 10.4 g/dL (12.0-15.5); LYMPHOCYTES % (AUTO) 5.4 % (13-45); MEAN CORPUSCULAR HEMOGLOBIN 28.4 pg (27.0-33.4); MEAN CORPUSCULAR HGB CONC 33.8 g/dL (32.0-36.0); MEAN CORPUSCULAR VOLUME 84 fl (80-97); MONOCYTES % (AUTO) 4.6 % (3-13); PLATELET COUNT 300 10^3/uL (150-450); RED BLOOD COUNT 3.67 10^6/uL (3.72-5.28); RED CELL DISTRIBUTION WIDTH 14.2 % (11.5-14.0); SEGMENTED NEUTROPHILS % (AUTO) 89.3 % (42-78); TOTAL CELLS COUNTED % (AUTO) 100 %; WHITE BLOOD COUNT 10.3 10^3/uL (4.0-10.5)
[2018-12-22 13:19] LABS: ALANINE AMINOTRANSFERASE 9 U/L (9-52); ALBUMIN 2.8 g/dL (3.5-5.0); ALKALINE PHOSPHATASE 41 U/L (38-126); ANION GAP 11 (5-19); ASPARTATE AMINO TRANSFERASE 20 U/L (14-36); BILIRUBIN,DIRECT 0.2 mg/dL (0.0-0.4); BILIRUBIN,TOTAL 0.2 mg/dL (0.2-1.3); BLOOD UREA NITROGEN 10 mg/dL (7-20); CALCIUM 8.6 mg/dL (8.4-10.2); CARBON DIOXIDE 23 mmol/L (22-30); CHLORIDE 104 mmol/L (98-107); GLUCOSE 105 mg/dL (75-110); POTASSIUM 4.8 mmol/L (3.6-5.0); SODIUM 137.5 mmol/L (137-145); TOTAL PROTEIN 6.2 g/dL (6.3-8.2)
[2018-12-22 13:39] LABS: % CD 8 POS LYMPH 67.6 % (12.0-35.5); ABSOLUTE CD 4 HELPER 35 /uL (359-1519); ABSOLUTE CD 8 SUPPRESSOR 473 /uL (109-897); ABSOLUTE CD19+ LYMPHS 146 /uL (12-645); ABSOLUTE CD3 558 /uL (622-2402); ABSOLUTE CD4 HELPER 51 /uL (359-1519); ABSOLUTE CD8 SUPPRESSOR 516 /uL (109-897); CD BASOPHILS 0 % (Not Estab.); CD EOSINOPHILS 2 % (Not Estab.); CD MONOCYTES 7 % (Not Estab.); CD NEUTROPHILS 76 % (Not Estab.); CD NEUTROPHILS 77 % (Not Estab.); CD4/CD8 RATIO 0.07 (0.92-3.72); EOSINOPHILS (ABSOLUTE) 0.1 x10E3/uL (0.0-0.4); HEMOGLOBIN 10.9 g/dL (11.1-15.9); IMMATURE GRANULOCYTES 0 % (Not Estab.); LYMPHS(ABSOLUTE) 0.7 x10E3/uL (0.7-3.1); LYMPHS(ABSOLUTE) 0.8 x10E3/uL (0.7-3.1); MCH 27.7 pg (26.6-33.0); MCHC 32.7 g/dL (31.5-35.7); MCHC 32.8 g/dL (31.5-35.7); MCV 85 fL (79-97); MONOCYTES(ABSOLUTE) 0.4 x10E3/uL (0.1-0.9); NEUTROPHILS(ABSOLUTE) 4.1 x10E3/uL (1.4-7.0); PERCENT CD19 + LYMPHS 18.3 % (3.3-25.4); PERCENT CD3 POS LYMPH 69.7 % (57.5-86.2); PERCENT CD4 POS LYMPH 6.4 % (30.8-58.5); PERCENT CD8 POS LYMPH 64.5 % (12.0-35.5); PLATELETS 287 x10E3/uL (150-379); PLATELETS 296 x10E3/uL (150-379); RBC 3.93 x10E6/uL (3.77-5.28); RBC 3.94 x10E6/uL (3.77-5.28); RDW 13.6 % (12.3-15.4); RDW 13.7 % (12.3-15.4); WBC 5.2 x10E3/uL (3.4-10.8); WBC 5.3 x10E3/uL (3.4-10.8)
--- NOTE | 2018-12-22 18:48 | PDOC PROGRESS REPORT ---
Subjective Progress Note for:: 12/22/18 Subjective:: Patient was seen by the bedside the T-cell subset CD4 counts is 35 suggesting severe immunosuppression, clinically patient is improving on intravenous Bactrim , she would need Bactrim for 21 days she has presumed PCP pneumonia Reason For Visit: PCP PNEUMONIA,ACUTE HYPOXEMIC RESPIRATORY FAILURE Physical Exam Vital Signs: Temp Pulse Resp BP Pulse Ox 97.2 F 69 16 108/69 97 12/22/18 15:08 12/22/18 15:08 12/22/18 15:08 12/22/18 15:08 12/22/18 15:08 Intake & Output 12/21/18 12/22/18 12/23/18 06:59 06:59 06:59 Intake Total 4670 4537 2391 Balance 4670 4537 2391 General appearance: PRESENT: no acute distress Eye exam: PRESENT: PERRLA Respiratory exam: PRESENT: decreased breath sounds Cardiovascular exam: PRESENT: +S1, +S2 GI/Abdominal exam: PRESENT: soft Neurological exam: PRESENT: alert Results Laboratory Results: 12/22/18 12:27 12/22/18 12:27 12/22/18 12/22/18 12:27 12:27 WBC 10.3 RBC 3.67 L Hgb 10.4 L Hct 30.8 L MCV 84 MCH 28.4 MCHC 33.8 RDW 14.2 H Plt Count 300 Seg Neutrophils % 89.3 H Lymphocytes % 5.4 L Monocytes % 4.6 Eosinophils % 0.0 Basophils % 0.7 Absolute Neutrophils 9.2 H Absolute Lymphocytes 0.6 Absolute Monocytes 0.5 Absolute Eosinophils 0.0 Absolute Basophils 0.1 Sodium 137.5 Potassium 4.8 Chloride 104 Carbon Dioxide 23 Anion Gap 11 BUN 10 Creatinine 0.81 Est GFR ( Amer) > 60 Est GFR (Non-Af Amer) > 60 Glucose 105 Calcium 8.6 Total Bilirubin 0.2 AST 20 ALT 9 Alkaline Phosphatase 41 Total Protein 6.2 L Albumin 2.8 L 12/18/18 12/19/18 22:30 00:09 Troponin I Cancelled 0.018 NT-Pro-B Natriuret Pep Cancelled 1200 H Impressions: Chest CT 12/18/18 23:04 IMPRESSION: Little change from the 11/28/2018 exam. Extensive mixed interstitial and airspace opacities bilaterally. Given the chronicity of findings, findings could reflect nonspecific interstitial pneumonitis, hypersensitivity pneumonitis, sarcoidosis, with other etiologies not excluded. TECHNICAL DOCUMENTATION: Quality ID # 436: Final reports with documentation of one or more dose reduction techniques (e.g., Automated exposure control, adjustment of the mA and/or kV according to patient size, use of iterative reconstruction technique) copyright 2011 [employer]- All Rights Reserved Chest X-Ray 12/21/18 00:00 IMPRESSION: Similar bilateral consolidation, left greater than right. No significant pleural effusion. 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 Is this a current diagnosis for this admission?: Yes Plan: Continue intravenous Bactrim (3) HIV (human immunodeficiency virus infection) Qualifiers: HIV symptom status: symptomatic Qualified Code(s): B20 - Human immunodeficiency virus [HIV] disease Is this a current diagnosis for this admission?: Yes Plan: Patient has not been taking any anti-retroviral agent for many months now so clearly she is immunosuppressed at this point we could not obtain the last medication that she was on for the HIV infection so she will continue combination nucleoside reverse transcriptase inhibitors,in this hospital, Emtricitabine and tenofovir is formulary that is the background treatment for HIV infection in addition to Proteus inhibitor or integrates inhibitor, in this hospital raltegravir is formulary this will be boosted with ritonavir
--- NOTE | 2018-12-22 19:36 | RADIOLOGY REPORT (SQ) ---
EXAM DESCRIPTION: CHEST 2 VIEWS COMPLETED DATE/TIME: 12/22/2018 7:25 pm REASON FOR STUDY: PCP Pneumonia COMPARISON: Chest films 12/21/2018, 12/20/2018, 12/18/2018 CT chest 12/18/2018, 11/28/2018 EXAM PARAMETERS: NUMBER OF VIEWS: two views TECHNIQUE: Digital Frontal and Lateral radiographic views of the chest acquired. RADIATION DOSE: NA LIMITATIONS: none FINDINGS: LUNGS AND PLEURA: Diffuse bilateral alveolar and interstitial infiltrates from pneumocysti s pneumonia are unchanged from 12/21/2018. No pleural effusion, no pneumothorax. MEDIASTINUM AND HILAR STRUCTURES: No masses or contour abnormalities. HEART AND VASCULAR STRUCTURES: Heart normal size. No evidence for failure. BONES: No acute findings. HARDWARE: None in the chest. OTHER: No other significant finding. IMPRESSION: Diffuse bilateral alveolar and interstitial infiltrates are stable TECHNICAL DOCUMENTATION: JOB ID: [id number] [employer]- All Rights Reserved Reading location - IP/workstation name: [email or web address]
[2018-12-22] MEDS: PREGABALIN 50 MG CAPSULE PO SCH (22:44)
[2018-12-23] MEDS: SULFAMETHOXAZOLE/TRIMETHOPRIM 480 MG in DEXTROSE 5%-WATER 1000 ML 750 ML IV SCH ×4 (01:15→19:03)
[2018-12-23] MEDS: PREDNISONE 20 MG TABLET PO SCH ×2 (10:27→17:54)
[2018-12-23] MEDS: EMTRICITABINE/TENOFOVIR 200-300 MG TABLET PO SCH (10:28)
[2018-12-23] MEDS: RALTEGRAVIR POTASSIUM 400 MG TABLET PO SCH ×2 (10:28→17:54)
[2018-12-23] MEDS: CARVEDILOL 12.5 MG TABLET PO SCH ×2 (10:28→21:32)
[2018-12-23] MEDS: RITONAVIR 100 MG TABLET PO SCH (10:28)
[2018-12-23] MEDS: FLUTICASONE/UMECLIDIN/VILANTER 100-62.5-25 MCG/DOSE IH SCH (10:29)
[2018-12-23 12:25] LABS: ABSOLUTE LYMPHOCYTES (AUTO) 0.6 10^3/uL (0.5-4.7); ABSOLUTE MONOCYTES (AUTO) 0.3 10^3/uL (0.1-1.4); ABSOLUTE NEUT (AUTO) 7.8 10^3/uL (1.7-8.2); BASOPHILS % (AUTO) 0.4 % (0-2); HEMATOCRIT 32.6 % (36.0-47.0); LYMPHOCYTES % (AUTO) 6.6 % (13-45); MEAN CORPUSCULAR HEMOGLOBIN 28.2 pg (27.0-33.4); MEAN CORPUSCULAR HGB CONC 33.8 g/dL (32.0-36.0); MEAN CORPUSCULAR VOLUME 84 fl (80-97); MONOCYTES % (AUTO) 3.5 % (3-13); PLATELET COUNT 303 10^3/uL (150-450); RED CELL DISTRIBUTION WIDTH 13.8 % (11.5-14.0); SEGMENTED NEUTROPHILS % (AUTO) 89.5 % (42-78); TOTAL CELLS COUNTED % (AUTO) 100 %; WHITE BLOOD COUNT 8.7 10^3/uL (4.0-10.5)
[2018-12-23 12:50] LABS: ALANINE AMINOTRANSFERASE 18 U/L (9-52); ALBUMIN 2.9 g/dL (3.5-5.0); ALKALINE PHOSPHATASE 46 U/L (38-126); ANION GAP 11 (5-19); ASPARTATE AMINO TRANSFERASE 19 U/L (14-36); BILIRUBIN,DIRECT 0.1 mg/dL (0.0-0.4); BILIRUBIN,TOTAL 0.1 mg/dL (0.2-1.3); BLOOD UREA NITROGEN 12 mg/dL (7-20); CALCIUM 8.9 mg/dL (8.4-10.2); CARBON DIOXIDE 22 mmol/L (22-30); CHLORIDE 102 mmol/L (98-107); GLUCOSE 108 mg/dL (75-110); POTASSIUM 4.7 mmol/L (3.6-5.0); SODIUM 135.2 mmol/L (137-145); TOTAL PROTEIN 6.4 g/dL (6.3-8.2)
--- NOTE | 2018-12-23 18:20 | PDOC PROGRESS REPORT ---
Subjective Progress Note for:: 12/23/18 Subjective:: Patient was seen by the bedside, she has no new complaints today Reason For Visit: PCP PNEUMONIA,ACUTE HYPOXEMIC RESPIRATORY FAILURE Physical Exam Vital Signs: Temp Pulse Resp BP Pulse Ox 98.3 F 66 18 122/80 93 12/23/18 16:00 12/23/18 16:00 12/23/18 16:00 12/23/18 16:00 12/23/18 16:00 Intake & Output 12/22/18 12/23/18 12/24/18 06:59 06:59 06:59 Intake Total 4537 4829 850 Balance 4537 4829 850 Weight 99.6 kg General appearance: PRESENT: no acute distress Eye exam: PRESENT: PERRLA Respiratory exam: PRESENT: clear to auscultation gael Cardiovascular exam: PRESENT: +S1, +S2 GI/Abdominal exam: PRESENT: soft Neurological exam: PRESENT: alert Results Laboratory Results: 12/23/18 11:35 12/23/18 11:35 12/23/18 12/23/18 11:35 11:35 WBC 8.7 RBC 3.90 Hgb 11.0 L Hct 32.6 L MCV 84 MCH 28.2 MCHC 33.8 RDW 13.8 Plt Count 303 Seg Neutrophils % 89.5 H Lymphocytes % 6.6 L Monocytes % 3.5 Eosinophils % 0.0 Basophils % 0.4 Absolute Neutrophils 7.8 Absolute Lymphocytes 0.6 Absolute Monocytes 0.3 Absolute Eosinophils 0.0 Absolute Basophils 0.0 Sodium 135.2 L Potassium 4.7 Chloride 102 Carbon Dioxide 22 Anion Gap 11 BUN 12 Creatinine 0.85 Est GFR ( Amer) > 60 Est GFR (Non-Af Amer) > 60 Glucose 108 Calcium 8.9 Total Bilirubin 0.1 L AST 19 ALT 18 Alkaline Phosphatase 46 Total Protein 6.4 Albumin 2.9 L 12/18/18 12/19/18 22:30 00:09 Troponin I Cancelled 0.018 NT-Pro-B Natriuret Pep Cancelled 1200 H Impressions: Chest CT 12/18/18 23:04 IMPRESSION: Little change from the 11/28/2018 exam. Extensive mixed interstitial and airspace opacities bilaterally. Given the chronicity of findings, findings could reflect nonspecific interstitial pneumonitis, hypersensitivity pneumonitis, sarcoidosis, with other etiologies not excluded. 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 Is this a current diagnosis for this admission?: Yes Plan: She has presumed PCP, the CD4 count was 32 much less than 200, this suggest that the bilateral infiltrate is PCP pneumonia, patient is responding to treatment, she will continue Bactrim for 21 days and then she would require PCP prophylaxis until CD4 count is more than 200 (3) HIV (human immunodeficiency virus infection) Qualifiers: HIV symptom status: symptomatic Qualified Code(s): B20 - Human immunodeficiency virus [HIV] disease Is this a current diagnosis for this admission?: Yes Plan: Patient has not been taking any anti-retroviral agent for many months now so clearly she is immunosuppressed at this point we could not obtain the last medication that she was on for the HIV infection so she will continue combination nucleoside reverse transcriptase inhibitors,in this hospital, Emtricitabine and tenofovir is formulary that is the background treatment for HIV infection in addition to Proteus inhibitor or integrates inhibitor, in this hospital raltegravir is formulary this will be boosted with ritonavir
[2018-12-23] MEDS: PREGABALIN 50 MG CAPSULE PO SCH (21:33)
[2018-12-23] MEDS: ACETAMINOPHEN 325 MG TABLET PO PRN (21:34)
[2018-12-24] MEDS: SULFAMETHOXAZOLE/TRIMETHOPRIM 480 MG in DEXTROSE 5%-WATER 1000 ML 750 ML IV SCH ×4 (00:39→17:51)
[2018-12-24] MEDS: RALTEGRAVIR POTASSIUM 400 MG TABLET PO SCH ×2 (09:53→17:50)
[2018-12-24] MEDS: RITONAVIR 100 MG TABLET PO SCH (09:53)
[2018-12-24] MEDS: EMTRICITABINE/TENOFOVIR 200-300 MG TABLET PO SCH (09:54)
[2018-12-24] MEDS: FLUTICASONE/UMECLIDIN/VILANTER 100-62.5-25 MCG/DOSE IH SCH (09:54)
[2018-12-24] MEDS: PREDNISONE 20 MG TABLET PO SCH ×2 (09:54→17:50)
[2018-12-24] MEDS: CARVEDILOL 12.5 MG TABLET PO SCH (09:54)
[2018-12-24 13:46] LABS: HEMATOCRIT 34.5 % (36.0-47.0); MEAN CORPUSCULAR HEMOGLOBIN 28.8 pg (27.0-33.4); MEAN CORPUSCULAR HGB CONC 34.6 g/dL (32.0-36.0); MEAN CORPUSCULAR VOLUME 83 fl (80-97); PLATELET COUNT 328 10^3/uL (150-450); RED BLOOD COUNT 4.15 10^6/uL (3.72-5.28); WHITE BLOOD COUNT 9.8 10^3/uL (4.0-10.5)
[2018-12-24 14:07] LABS: ABSOLUTE LYMPHOCYTES# (MANUAL) 0.7 10^3/uL (0.5-4.7); ABSOLUTE MONOCYTES # (MANUAL) 0.2 10^3/uL (0.1-1.4); ABSOLUTE NEUTROPHILS# (MANUAL) 8.9 10^3/uL (1.7-8.2); BAND NEUTROPHILS % (MANUAL) 1 % (3-5); BASOPHILS % (MANUAL) 0 % (0-2); EOSINOPHILS % (MANUAL) 0 % (0-6); LYMPHOCYTES % (MANUAL) 7 % (13-45); MONOCYTES % (MANUAL) 2 % (3-13); SEGMENTED NEUTROPHILS % (MAN) 90 % (42-78); TOTAL CELLS COUNTED 100
[2018-12-24 14:11] LABS: ALANINE AMINOTRANSFERASE 11 U/L (9-52); ALBUMIN 3.2 g/dL (3.5-5.0); ALKALINE PHOSPHATASE 46 U/L (38-126); ANION GAP 10 (5-19); ASPARTATE AMINO TRANSFERASE 19 U/L (14-36); BILIRUBIN,DIRECT 0.2 mg/dL (0.0-0.4); BILIRUBIN,TOTAL 0.2 mg/dL (0.2-1.3); BLOOD UREA NITROGEN 14 mg/dL (7-20); BURR CELLS 1+; CALCIUM 9.2 mg/dL (8.4-10.2); CARBON DIOXIDE 21 mmol/L (22-30); CHLORIDE 102 mmol/L (98-107); GLUCOSE 113 mg/dL (75-110); OVALOCYTES 2+; POIKILOCYTOSIS 2+; POTASSIUM 5.1 mmol/L (3.6-5.0); SODIUM 132.9 mmol/L (137-145); TOTAL PROTEIN 6.8 g/dL (6.3-8.2); TOXIC VACUOLATION PRESENT
[2018-12-24 14:12] LABS: PLATELET COMMENT ADEQUATE
--- NOTE | 2018-12-24 14:46 | RADIOLOGY REPORT (SQ) ---
EXAM DESCRIPTION: CHEST SINGLE VIEW COMPLETED DATE/TIME: 12/24/2018 2:25 pm REASON FOR STUDY: pneumonia COMPARISON: CT chest 12/18/2018 Chest films 12/20/2018, 12/21/2018, 12/22/2018 EXAM PARAMETERS: NUMBER OF VIEWS: One view. TECHNIQUE: Single frontal radiographic view of the chest acquired. RADIATION DOSE: NA LIMITATIONS: None. FINDINGS: LUNGS AND PLEURA: Persistent diffuse alveolar and interstitial infiltrates are present, si milar compared to prior chest films. No pleural effusion. No pneumothorax. MEDIASTINUM AND HILAR STRUCTURES: No masses. Contour normal. HEART AND VASCULAR STRUCTURES: Stable mild cardiomegaly BONES: No acute findings. HARDWARE: None in the chest. OTHER: No other significant finding. IMPRESSION: No change in appearance of the chest TECHNICAL DOCUMENTATION: JOB ID: [id number]- All Rights Reserved Reading location - IP/workstation name: [email or web address]
--- NOTE | 2018-12-24 16:29 | PDOC PROGRESS REPORT ---
Subjective Progress Note for:: 12/24/18 Subjective:: Patient was seen by the bedside, she continues to respond to intravenous Bactrim, the chest x-ray finding is stable, she is on treatment for presumed PCP pneumonia, she will continue prednisone 40 mg p.o. twice daily for 5 days and then transition to 20 twice daily for 5 days Reason For Visit: PCP PNEUMONIA,ACUTE HYPOXEMIC RESPIRATORY FAILURE Physical Exam Vital Signs: Temp Pulse Resp BP Pulse Ox 97.3 F 79 20 132/72 H 92 12/24/18 11:20 12/24/18 11:20 12/24/18 11:20 12/24/18 11:20 12/24/18 11:20 Intake & Output 12/23/18 12/24/18 12/25/18 06:59 06:59 06:59 Intake Total 4829 3848 1286 Balance 4829 3848 1286 Weight 99.6 kg 99 kg General appearance: PRESENT: no acute distress Eye exam: PRESENT: PERRLA Respiratory exam: PRESENT: rhonchi Cardiovascular exam: PRESENT: +S1, +S2 GI/Abdominal exam: PRESENT: soft Neurological exam: PRESENT: alert Results Laboratory Results: 12/24/18 13:30 12/24/18 13:30 12/24/18 12/24/18 13:30 13:30 WBC 9.8 RBC 4.15 Hgb 12.0 Hct 34.5 L MCV 83 MCH 28.8 MCHC 34.6 RDW 14.0 Plt Count 328 Seg Neutrophils % Not Reportable Lymphocytes % Not Reportable Monocytes % Not Reportable Eosinophils % Not Reportable Basophils % Not Reportable Absolute Neutrophils Not Reportable Absolute Lymphocytes Not Reportable Absolute Monocytes Not Reportable Absolute Eosinophils Not Reportable Absolute Basophils Not Reportable Sodium 132.9 L Potassium 5.1 H Chloride 102 Carbon Dioxide 21 L Anion Gap 10 BUN 14 Creatinine 0.92 Est GFR ( Amer) > 60 Est GFR (Non-Af Amer) > 60 Glucose 113 H Calcium 9.2 Total Bilirubin 0.2 AST 19 ALT 11 Alkaline Phosphatase 46 Total Protein 6.8 Albumin 3.2 L 12/19/18 00:09 Blood Blood Culture - Final NO GROWTH IN 5 DAYS 12/19/18 00:17 Blood Blood Culture - Final NO GROWTH IN 5 DAYS 12/18/18 12/19/18 22:30 00:09 Troponin I Cancelled 0.018 NT-Pro-B Natriuret Pep Cancelled 1200 H Impressions: Chest CT 12/18/18 23:04 IMPRESSION: Little change from the 11/28/2018 exam. Extensive mixed interstitial and airspace opacities bilaterally. Given the chronicity of findings, findings could reflect nonspecific interstitial pneumonitis, hypersensitivity pneumonitis, sarcoidosis, with other etiologies not excluded. 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 prednisone (3) HIV (human immunodeficiency virus infection) Qualifiers: HIV symptom status: symptomatic Qualified Code(s): B20 - Human immunodeficiency virus [HIV] disease Is this a current diagnosis for this admission?: Yes Plan: Patient has not been taking any anti-retroviral agent for many months now so clearly she is immunosuppressed at this point we could not obtain the last medication that she was on for the HIV infection so she will continue combination nucleoside reverse transcriptase inhibitors,in this hospital, Emtricitabine and tenofovir is formulary that is the background treatment for HIV infection in addition to Proteus inhibitor or integrates inhibitor, in this hospital raltegravir is formulary this will be boosted with ritonavir
[2018-12-24] MEDS: ONDANSETRON HCL INJ/PF 4 MG/2 ML SDV IV PRN (17:11)
[2018-12-25] MEDS: PREGABALIN 50 MG CAPSULE PO SCH ×2 (00:35→21:37)
[2018-12-25] MEDS: SULFAMETHOXAZOLE/TRIMETHOPRIM 480 MG in DEXTROSE 5%-WATER 1000 ML 750 ML IV SCH ×4 (00:36→18:09)
[2018-12-25] MEDS: CARVEDILOL 12.5 MG TABLET PO SCH ×3 (00:36→21:37)
[2018-12-25] MEDS: RALTEGRAVIR POTASSIUM 400 MG TABLET PO SCH ×2 (09:25→18:09)
[2018-12-25] MEDS: PREDNISONE 20 MG TABLET PO SCH ×2 (09:26→18:08)
[2018-12-25] MEDS: RITONAVIR 100 MG TABLET PO SCH (09:26)
[2018-12-25] MEDS: FLUTICASONE/UMECLIDIN/VILANTER 100-62.5-25 MCG/DOSE IH SCH (09:26)
[2018-12-25] MEDS: EMTRICITABINE/TENOFOVIR 200-300 MG TABLET PO SCH (09:26)
[2018-12-25 13:23] LABS: ABSOLUTE LYMPHOCYTES (AUTO) 0.6 10^3/uL (0.5-4.7); ABSOLUTE MONOCYTES (AUTO) 0.1 10^3/uL (0.1-1.4); ABSOLUTE NEUT (AUTO) 6.7 10^3/uL (1.7-8.2); HEMATOCRIT 34.4 % (36.0-47.0); HEMOGLOBIN 11.7 g/dL (12.0-15.5); LYMPHOCYTES % (AUTO) 7.9 % (13-45); MEAN CORPUSCULAR HEMOGLOBIN 28.5 pg (27.0-33.4); MEAN CORPUSCULAR HGB CONC 33.9 g/dL (32.0-36.0); MEAN CORPUSCULAR VOLUME 84 fl (80-97); MONOCYTES % (AUTO) 1.1 % (3-13); PLATELET COUNT 306 10^3/uL (150-450); RED BLOOD COUNT 4.09 10^6/uL (3.72-5.28); RED CELL DISTRIBUTION WIDTH 14.4 % (11.5-14.0); TOTAL CELLS COUNTED % (AUTO) 100 %; WHITE BLOOD COUNT 7.4 10^3/uL (4.0-10.5)
[2018-12-25 13:43] LABS: ALANINE AMINOTRANSFERASE 16 U/L (9-52); ALBUMIN 3.1 g/dL (3.5-5.0); ALKALINE PHOSPHATASE 44 U/L (38-126); ANION GAP 10 (5-19); ASPARTATE AMINO TRANSFERASE 21 U/L (14-36); BILIRUBIN,DIRECT 0.2 mg/dL (0.0-0.4); BILIRUBIN,TOTAL 0.2 mg/dL (0.2-1.3); BLOOD UREA NITROGEN 19 mg/dL (7-20); CALCIUM 9.4 mg/dL (8.4-10.2); CARBON DIOXIDE 22 mmol/L (22-30); CHLORIDE 102 mmol/L (98-107); GLUCOSE 122 mg/dL (75-110); POTASSIUM 5.5 mmol/L (3.6-5.0); TOTAL PROTEIN 6.8 g/dL (6.3-8.2)
--- NOTE | 2018-12-25 19:57 | PDOC PROGRESS REPORT ---
Subjective Progress Note for:: 12/25/18 Subjective:: Patient seen by the bedside, continue present treatment Reason For Visit: PCP PNEUMONIA,ACUTE HYPOXEMIC RESPIRATORY FAILURE Physical Exam Vital Signs: Temp Pulse Resp BP Pulse Ox 98.1 F 62 15 111/72 91 L 12/25/18 16:00 12/25/18 16:00 12/25/18 16:00 12/25/18 16:00 12/25/18 16:00 Intake & Output 12/24/18 12/25/18 12/26/18 06:59 06:59 06:59 Intake Total 3848 4288 3140 Balance 3848 4288 3140 Weight 99 kg 98.1 kg 98.1 kg General appearance: PRESENT: no acute distress Eye exam: PRESENT: PERRLA Respiratory exam: PRESENT: rhonchi Cardiovascular exam: PRESENT: +S1, +S2 GI/Abdominal exam: PRESENT: soft Results Laboratory Results: 12/25/18 13:05 12/25/18 13:05 12/25/18 12/25/18 13:05 13:05 WBC 7.4 RBC 4.09 Hgb 11.7 L Hct 34.4 L MCV 84 MCH 28.5 MCHC 33.9 RDW 14.4 H Plt Count 306 Seg Neutrophils % 91.0 H Lymphocytes % 7.9 L Monocytes % 1.1 L Eosinophils % 0.0 Basophils % 0.0 Absolute Neutrophils 6.7 Absolute Lymphocytes 0.6 Absolute Monocytes 0.1 Absolute Eosinophils 0.0 Absolute Basophils 0.0 Sodium 134.0 L Potassium 5.5 H Chloride 102 Carbon Dioxide 22 Anion Gap 10 BUN 19 Creatinine 0.86 Est GFR ( Amer) > 60 Est GFR (Non-Af Amer) > 60 Glucose 122 H Calcium 9.4 Total Bilirubin 0.2 AST 21 ALT 16 Alkaline Phosphatase 44 Total Protein 6.8 Albumin 3.1 L 12/18/18 12/19/18 22:30 00:09 Troponin I Cancelled 0.018 NT-Pro-B Natriuret Pep Cancelled 1200 H Impressions: Chest CT 12/18/18 23:04 IMPRESSION: Little change from the 11/28/2018 exam. Extensive mixed interstitial and airspace opacities bilaterally. Given the chronicity of findings, findings could reflect nonspecific interstitial pneumonitis, hypersensitivity pneumonitis, sarcoidosis, with other etiologies not excluded. 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 prednisone (3) HIV (human immunodeficiency virus infection) Qualifiers: HIV symptom status: symptomatic Qualified Code(s): B20 - Human immunodeficiency virus [HIV] disease Is this a current diagnosis for this admission?: Yes Plan: Patient has not been taking any anti-retroviral agent for many months now so clearly she is immunosuppressed at this point we could not obtain the last medication that she was on for the HIV infection so she will continue combination nucleoside reverse transcriptase inhibitors,in this hospital, Emtricitabine and tenofovir is formulary that is the background treatment for HIV infection in addition to Proteus inhibitor or integrates inhibitor, in this hospital raltegravir is formulary this will be boosted with ritonavir
[2018-12-26] MEDS: SULFAMETHOXAZOLE/TRIMETHOPRIM 480 MG in DEXTROSE 5%-WATER 1000 ML 750 ML IV SCH ×3 (01:32→16:06)
[2018-12-26] MEDS: CARVEDILOL 12.5 MG TABLET PO SCH ×2 (09:38→22:11)
[2018-12-26] MEDS: PREDNISONE 20 MG TABLET PO SCH ×2 (09:39→19:04)
[2018-12-26] MEDS: RITONAVIR 100 MG TABLET PO SCH (09:39)
[2018-12-26] MEDS: RALTEGRAVIR POTASSIUM 400 MG TABLET PO SCH ×2 (09:39→19:04)
[2018-12-26] MEDS: EMTRICITABINE/TENOFOVIR 200-300 MG TABLET PO SCH (09:40)
[2018-12-26] MEDS: FLUTICASONE/UMECLIDIN/VILANTER 100-62.5-25 MCG/DOSE IH SCH (09:40)
--- NOTE | 2018-12-26 12:31 | Pulmonary Function Test ---
Pulmonary Function Test Date of Procedure:: 12/25/18 INDICATION:: Dyspnea Referring Provider: Rear Admiral: Wanda Pride MEDICINE AND HEALTH SERVICE MANAGER, BISCUIT MACHINE OPERATOR - Report Spirometry: FVC 1.1 L 34% postbronchodilator 1.14 L 35% FEV1 0.93 L 35% postbronchodilator 0.96 L 36% FEV1/FVC % 84 postbronchodilator 84 predicted 83 FEF 25-75% 1.90 L 66% postbronchodilator 2.23 L 77% Lung Volume: Vital capacity 1.11 L 34% Diffusion Capactity: Diffusion capacity 17.3 67% DLCO/VA 0.7 5 18% Impression: Severe obstructive ventilatory defect with insignificant response to bronchodilator therapy this in and of itself does not preclude a clinical trial of bronchodilator therapy. Telemetry suggestive of restrictive ventilatory defect. Restrictive defect cannot be diagnosed on the basis of spirometry alone. Restrictive defect may mask the degree of obstruction. Mild decrease in diffusion capacity.
[2018-12-26 12:43] LABS: ABSOLUTE LYMPHOCYTES (AUTO) 0.4 10^3/uL (0.5-4.7); ABSOLUTE NEUT (AUTO) 7.6 10^3/uL (1.7-8.2); HEMATOCRIT 33.5 % (36.0-47.0); HEMOGLOBIN 11.4 g/dL (12.0-15.5); LYMPHOCYTES % (AUTO) 5.4 % (13-45); MEAN CORPUSCULAR HEMOGLOBIN 28.5 pg (27.0-33.4); MEAN CORPUSCULAR VOLUME 84 fl (80-97); MONOCYTES % (AUTO) 0.6 % (3-13); PLATELET COUNT 316 10^3/uL (150-450); RED BLOOD COUNT 3.99 10^6/uL (3.72-5.28); RED CELL DISTRIBUTION WIDTH 14.3 % (11.5-14.0); TOTAL CELLS COUNTED % (AUTO) 100 %; WHITE BLOOD COUNT 8.1 10^3/uL (4.0-10.5)
[2018-12-26 13:08] LABS: ALANINE AMINOTRANSFERASE 27 U/L (9-52); ALBUMIN 2.9 g/dL (3.5-5.0); ALKALINE PHOSPHATASE 42 U/L (38-126); ANION GAP 12 (5-19); ASPARTATE AMINO TRANSFERASE 18 U/L (14-36); BILIRUBIN,DIRECT 0.2 mg/dL (0.0-0.4); BILIRUBIN,TOTAL 0.2 mg/dL (0.2-1.3); BLOOD UREA NITROGEN 18 mg/dL (7-20); CALCIUM 9.2 mg/dL (8.4-10.2); CARBON DIOXIDE 21 mmol/L (22-30); CHLORIDE 101 mmol/L (98-107); GLUCOSE 106 mg/dL (75-110); POTASSIUM 5.2 mmol/L (3.6-5.0); SODIUM 133.9 mmol/L (137-145); TOTAL PROTEIN 6.1 g/dL (6.3-8.2)
[2018-12-26] MEDS: ONDANSETRON HCL INJ/PF 4 MG/2 ML SDV IV PRN (19:04)
--- NOTE | 2018-12-26 21:01 | PDOC PROGRESS REPORT ---
Subjective Progress Note for:: 12/26/18 Subjective:: Patient seen by the bedside, continue present treatment Reason For Visit: PCP PNEUMONIA,ACUTE HYPOXEMIC RESPIRATORY FAILURE Physical Exam Vital Signs: Temp Pulse Resp BP Pulse Ox 98.2 F 64 18 109/43 L 94 12/26/18 16:00 12/26/18 16:00 12/26/18 16:00 12/26/18 16:00 12/26/18 16:00 Intake & Output 12/25/18 12/26/18 12/27/18 06:59 06:59 06:59 Intake Total 4288 5276 2230 Balance 4288 5276 2230 Weight 98.1 kg 98.3 kg General appearance: PRESENT: no acute distress Eye exam: PRESENT: PERRLA Respiratory exam: PRESENT: clear to auscultation gael Cardiovascular exam: PRESENT: +S1, systolic murmur GI/Abdominal exam: PRESENT: soft Neurological exam: PRESENT: alert Results Laboratory Results: 12/26/18 12:25 12/26/18 12:25 12/26/18 12/26/18 12:25 12:25 WBC 8.1 RBC 3.99 Hgb 11.4 L Hct 33.5 L MCV 84 MCH 28.5 MCHC 34.0 RDW 14.3 H Plt Count 316 Seg Neutrophils % 94.0 H Lymphocytes % 5.4 L Monocytes % 0.6 L Eosinophils % 0.0 Basophils % 0.0 Absolute Neutrophils 7.6 Absolute Lymphocytes 0.4 L Absolute Monocytes 0.0 L Absolute Eosinophils 0.0 Absolute Basophils 0.0 Sodium 133.9 L Potassium 5.2 H Chloride 101 Carbon Dioxide 21 L Anion Gap 12 BUN 18 Creatinine 0.87 Est GFR ( Amer) > 60 Est GFR (Non-Af Amer) > 60 Glucose 106 Calcium 9.2 Total Bilirubin 0.2 AST 18 ALT 27 Alkaline Phosphatase 42 Total Protein 6.1 L Albumin 2.9 L 12/18/18 12/19/18 22:30 00:09 Troponin I Cancelled 0.018 NT-Pro-B Natriuret Pep Cancelled 1200 H Impressions: Chest CT 12/18/18 23:04 IMPRESSION: Little change from the 11/28/2018 exam. Extensive mixed interstitial and airspace opacities bilaterally. Given the chronicity of findings, findings could reflect nonspecific interstitial pneumonitis, hypersensitivity pneumonitis, sarcoidosis, with other etiologies not excluded. 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 prednisone (3) HIV (human immunodeficiency virus infection) Qualifiers: HIV symptom status: symptomatic Qualified Code(s): B20 - Human immunodeficiency virus [HIV] disease Is this a current diagnosis for this admission?: Yes Plan: Patient has not been taking any anti-retroviral agent for many months now so clearly she is immunosuppressed at this point we could not obtain the last medication that she was on for the HIV infection so she will continue combination nucleoside reverse transcriptase inhibitors,in this hospital, Emtricitabine and tenofovir is formulary that is the background treatment for HIV infection in addition to Proteus inhibitor or integrates inhibitor, in this hospital raltegravir is formulary this will be boosted with ritonavir
[2018-12-26] MEDS: PREGABALIN 50 MG CAPSULE PO SCH (22:11)
[2018-12-27] MEDS ORDERED: SULFAMETHOX/TRIMETH 800-160 MG/10 ML VIAL IV ONE (01:17)
[2018-12-27] MEDS ORDERED: SULFAMETHOX/TRIMETH 800-160 MG/10 ML VIAL IV PRN (01:45)
[2018-12-27] MEDS: SULFAMETHOXAZOLE/TRIMETHOPRIM 480 MG in DEXTROSE 5%-WATER 1000 ML 750 ML IV SCH ×3 (05:01→19:49)
[2018-12-27] MEDS: EMTRICITABINE/TENOFOVIR 200-300 MG TABLET PO SCH (11:26)
[2018-12-27] MEDS: RALTEGRAVIR POTASSIUM 400 MG TABLET PO SCH ×2 (11:26→19:50)
[2018-12-27] MEDS: PREDNISONE 20 MG TABLET PO SCH ×2 (11:27→19:49)
[2018-12-27] MEDS: CARVEDILOL 12.5 MG TABLET PO SCH ×2 (11:27→23:01)
[2018-12-27] MEDS: RITONAVIR 100 MG TABLET PO SCH (11:27)
[2018-12-27] MEDS: FLUTICASONE/UMECLIDIN/VILANTER 100-62.5-25 MCG/DOSE IH SCH (11:28)
[2018-12-27 13:55] LABS: ABSOLUTE LYMPHOCYTES (AUTO) 0.7 10^3/uL (0.5-4.7); ABSOLUTE NEUT (AUTO) 4.7 10^3/uL (1.7-8.2); BASOPHILS % (AUTO) 0.2 % (0-2); HEMATOCRIT 38.4 % (36.0-47.0); HEMOGLOBIN 12.8 g/dL (12.0-15.5); LYMPHOCYTES % (AUTO) 13.1 % (13-45); MEAN CORPUSCULAR HEMOGLOBIN 27.8 pg (27.0-33.4); MEAN CORPUSCULAR HGB CONC 33.3 g/dL (32.0-36.0); MEAN CORPUSCULAR VOLUME 83 fl (80-97); MONOCYTES % (AUTO) 0.3 % (3-13); PLATELET COUNT 341 10^3/uL (150-450); RED CELL DISTRIBUTION WIDTH 14.2 % (11.5-14.0); SEGMENTED NEUTROPHILS % (AUTO) 86.4 % (42-78); TOTAL CELLS COUNTED % (AUTO) 100 %; WHITE BLOOD COUNT 5.4 10^3/uL (4.0-10.5)
--- NOTE | 2018-12-27 14:02 | PDOC PROGRESS REPORT ---
Subjective Progress Note for:: 12/27/18 Subjective:: No fever or chills. Breathing has improved. No chest pain. No nausea, vomiting or abdominal pain. Tolerating oral feeding. Reason For Visit: PCP PNEUMONIA,ACUTE HYPOXEMIC RESPIRATORY FAILURE Physical Exam Vital Signs: Temp Pulse Resp BP Pulse Ox 98.2 F 70 18 118/80 93 12/27/18 12:00 12/27/18 12:00 12/27/18 12:00 12/27/18 12:00 12/27/18 12:00 Intake & Output 12/26/18 12/27/18 12/28/18 06:59 06:59 06:59 Intake Total 5276 2905 750 Balance 5276 2905 750 Weight 98.3 kg 99.9 kg General appearance: PRESENT: no acute distress, obese Head exam: PRESENT: atraumatic, normocephalic Eye exam: PRESENT: conjunctiva pink, EOMI, PERRLA. ABSENT: scleral icterus Ear exam: PRESENT: normal external ear exam Mouth exam: PRESENT: moist Respiratory exam: PRESENT: clear to auscultation gael Cardiovascular exam: PRESENT: RRR. ABSENT: diastolic murmur, rubs, systolic murmur Vascular exam: PRESENT: normal capillary refill. ABSENT: pallor GI/Abdominal exam: PRESENT: normal bowel sounds, soft. ABSENT: distended, guarding, mass, organolmegaly, rebound, tenderness Extremities exam: ABSENT: pedal edema Neurological exam: PRESENT: alert, awake, oriented to person, oriented to place, oriented to time, oriented to situation, CN II-XII grossly intact. ABSENT: motor sensory deficit Psychiatric exam: PRESENT: appropriate affect, normal mood. ABSENT: homicidal ideation, suicidal ideation Skin exam: PRESENT: dry, warm Results Laboratory Results: 12/18/18 12/19/18 22:30 00:09 Troponin I Cancelled 0.018 NT-Pro-B Natriuret Pep Cancelled 1200 H Impressions: Chest CT 12/18/18 23:04 IMPRESSION: Little change from the 11/28/2018 exam. Extensive mixed interstitial and airspace opacities bilaterally. Given the chronicity of findings, findings could reflect nonspecific interstitial pneumonitis, hypersensitivity pneumonitis, sarcoidosis, with other etiologies not excluded. TECHNICAL DOCUMENTATION: Quality ID # 436: Final reports with documentation of one or more dose reduction techniques (e.g., Automated exposure control, adjustment of the mA and/or kV according to patient size, use of iterative reconstruction technique) copyright 2011 [employer]- All Rights Reserved Chest X-Ray 12/24/18 00:00 IMPRESSION: No change in appearance of the chest Assessment & Plan - Diagnosis (1) Acute hypoxemic respiratory failure Is this a current diagnosis for this admission?: Yes Plan: Continue current medication management. 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 (3) HIV (human immunodeficiency virus infection) Qualifiers: HIV symptom status: symptomatic Qualified Code(s): B20 - Human immunodeficiency virus [HIV] disease Is this a current diagnosis for this admission?: Yes Plan: Continue current medication management. - Time Time Spent with patient: 25-34 minutes Medications reviewed and adjusted accordingly: Yes Anticipated discharge: Home Within: Other - Inpatient Certification Based on my medical assessment, after consideration of the patient's comorbidities, presenting symptoms, or acuity I expect that the services needed warrant INPATIENT care.: Yes I certify that my determination is in accordance with my understanding of Medicare's requirements for reasonable and necessary INPATIENT services [42 CFR 412.3e].: Yes Medical Necessity: Significant Comorbidiites Make Outpatient Treatment Too Risky, Need Close Monitoring Due to Risk of Patient Decompensation, Need For IV Fluids, Need For Continuous Telemetry Monitoring, Need for IV Antibiotics, Risk of Complication if Not Cared For in Hospital, Risk of Diagnosis Which Will Require Inpatient Eval/Care/Monitoring Post Hospital Care: D/C Ham Stripper Documentation - Plan Summary Plan Summary: Continue current medication management. Follow up on pending labs.
[2018-12-27 14:14] LABS: ALANINE AMINOTRANSFERASE 14 U/L (9-52); ALBUMIN 3.6 g/dL (3.5-5.0); ALKALINE PHOSPHATASE 46 U/L (38-126); ANION GAP 11 (5-19); ASPARTATE AMINO TRANSFERASE 21 U/L (14-36); BILIRUBIN,DIRECT 0.3 mg/dL (0.0-0.4); BILIRUBIN,TOTAL 0.3 mg/dL (0.2-1.3); BLOOD UREA NITROGEN 17 mg/dL (7-20); CALCIUM 9.7 mg/dL (8.4-10.2); CARBON DIOXIDE 22 mmol/L (22-30); CHLORIDE 100 mmol/L (98-107); GLUCOSE 108 mg/dL (75-110); POTASSIUM 5.7 mmol/L (3.6-5.0); SODIUM 133.4 mmol/L (137-145); TOTAL PROTEIN 7.3 g/dL (6.3-8.2)
[2018-12-27] MEDS: PREGABALIN 50 MG CAPSULE PO SCH (23:01)
[2018-12-28] MEDS: SULFAMETHOXAZOLE/TRIMETHOPRIM 480 MG in DEXTROSE 5%-WATER 1000 ML 750 ML IV SCH ×4 (00:49→17:57)
[2018-12-28] MEDS: CARVEDILOL 12.5 MG TABLET PO SCH ×2 (10:18→21:52)
[2018-12-28] MEDS: RALTEGRAVIR POTASSIUM 400 MG TABLET PO SCH ×2 (10:19→17:59)
[2018-12-28] MEDS: EMTRICITABINE/TENOFOVIR 200-300 MG TABLET PO SCH (10:19)
[2018-12-28] MEDS: PREDNISONE 20 MG TABLET PO SCH ×2 (10:19→17:58)
[2018-12-28] MEDS: RITONAVIR 100 MG TABLET PO SCH (10:19)
[2018-12-28] MEDS: FLUTICASONE/UMECLIDIN/VILANTER 100-62.5-25 MCG/DOSE IH SCH (10:20)
--- NOTE | 2018-12-28 11:17 | PDOC PROGRESS REPORT ---
Subjective Progress Note for:: 12/28/18 Subjective:: No chest pain or difficulty with breathing. No nausea, vomiting or abdominal pain. Tolerating oral feeding. No fever or chills. Remain on IV Bactrim therapy. Reason For Visit: PCP PNEUMONIA,ACUTE HYPOXEMIC RESPIRATORY FAILURE Physical Exam Vital Signs: Temp Pulse Resp BP Pulse Ox 97.8 F 57 L 15 142/88 H 97 12/28/18 08:00 12/28/18 08:00 12/28/18 08:00 12/28/18 08:00 12/28/18 08:00 Intake & Output 12/27/18 12/28/18 12/29/18 06:59 06:59 06:59 Intake Total 2905 6110 Balance 2905 6110 Weight 99.9 kg 100.1 kg Physical Exam: General appearance: PRESENT: no acute distress, obese Head exam: PRESENT: atraumatic, normocephalic Eye exam: PRESENT: conjunctiva pink, EOMI, PERRLA. ABSENT: pallor, scleral icterus Ear exam: PRESENT: normal external ear exam Mouth exam: PRESENT: moist Respiratory exam: PRESENT: clear to auscultation gael Cardiovascular exam: PRESENT: RRR. ABSENT: diastolic murmur, rubs, systolic murmur GI/Abdominal exam: PRESENT: normal bowel sounds, soft. ABSENT: distended, guarding, mass, organomegaly, rebound, tenderness Extremities exam: ABSENT: pedal edema Neurological exam: PRESENT: alert, awake, oriented to person, oriented to place, oriented to time, oriented to situation, CN II-XII grossly intact. ABSENT: motor sensory deficit Psychiatric exam: PRESENT: appropriate affect, normal mood. ABSENT: homicidal ideation, suicidal ideation Skin exam: PRESENT: dry, warm Results Laboratory Results: 12/27/18 12:59 12/27/18 12:59 12/27/18 12/27/18 12:59 12:59 WBC 5.4 RBC 4.60 Hgb 12.8 Hct 38.4 MCV 83 MCH 27.8 MCHC 33.3 RDW 14.2 H Plt Count 341 Seg Neutrophils % 86.4 H Lymphocytes % 13.1 Monocytes % 0.3 L Eosinophils % 0.0 Basophils % 0.2 Absolute Neutrophils 4.7 Absolute Lymphocytes 0.7 Absolute Monocytes 0.0 L Absolute Eosinophils 0.0 Absolute Basophils 0.0 Sodium 133.4 L Potassium 5.7 H Chloride 100 Carbon Dioxide 22 Anion Gap 11 BUN 17 Creatinine 0.95 Est GFR ( Amer) > 60 Est GFR (Non-Af Amer) > 60 Glucose 108 Calcium 9.7 Total Bilirubin 0.3 AST 21 ALT 14 Alkaline Phosphatase 46 Total Protein 7.3 Albumin 3.6 12/18/18 12/19/18 22:30 00:09 Troponin I Cancelled 0.018 NT-Pro-B Natriuret Pep Cancelled 1200 H Impressions: Chest CT 12/18/18 23:04 IMPRESSION: Little change from the 11/28/2018 exam. Extensive mixed interstitial and airspace opacities bilaterally. Given the chronicity of findings, findings could reflect nonspecific interstitial pneumonitis, hypersensitivity pneumonitis, sarcoidosis, with other etiologies not excluded. 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 Start on Veltassa 8.4 gm po daily and monitor serum potassium level. - Time Time Spent with patient: 25-34 minutes Medications reviewed and adjusted accordingly: Yes Anticipated discharge: Home with Homehealth Within: Other - Inpatient Certification Based on my medical assessment, after consideration of the patient's comorbidities, presenting symptoms, or acuity I expect that the services needed warrant INPATIENT care.: Yes I certify that my determination is in accordance with my understanding of Medicare's requirements for reasonable and necessary INPATIENT services [42 CFR 412.3e].: Yes Medical Necessity: Significant Comorbidiites Make Outpatient Treatment Too Risky, Need Close Monitoring Due to Risk of Patient Decompensation, Need For IV Fluids, Need For Continuous Telemetry Monitoring, Need for IV Antibiotics, Risk of Complication if Not Cared For in Hospital, Risk of Diagnosis Which Will Require Inpatient Eval/Care/Monitoring Post Hospital Care: D/C Escapement Maker Documentation - Plan Summary Plan Summary: See covering attending physician orders as per above outlined care plan.
[2018-12-28 12:27] LABS: ABSOLUTE LYMPHOCYTES (AUTO) 0.7 10^3/uL (0.5-4.7); BASOPHILS % (AUTO) 0.2 % (0-2); HEMOGLOBIN 12.3 g/dL (12.0-15.5); LYMPHOCYTES % (AUTO) 14.1 % (13-45); MEAN CORPUSCULAR HEMOGLOBIN 28.4 pg (27.0-33.4); MEAN CORPUSCULAR HGB CONC 34.2 g/dL (32.0-36.0); MEAN CORPUSCULAR VOLUME 83 fl (80-97); MONOCYTES % (AUTO) 0.7 % (3-13); PLATELET COUNT 318 10^3/uL (150-450); RED BLOOD COUNT 4.34 10^6/uL (3.72-5.28); RED CELL DISTRIBUTION WIDTH 13.9 % (11.5-14.0); TOTAL CELLS COUNTED % (AUTO) 100 %; WHITE BLOOD COUNT 4.7 10^3/uL (4.0-10.5)
[2018-12-28 12:47] LABS: ALANINE AMINOTRANSFERASE 25 U/L (9-52); ALBUMIN 3.4 g/dL (3.5-5.0); ALKALINE PHOSPHATASE 44 U/L (38-126); ANION GAP 11 (5-19); ASPARTATE AMINO TRANSFERASE 17 U/L (14-36); BILIRUBIN,DIRECT 0.1 mg/dL (0.0-0.4); BILIRUBIN,TOTAL 0.2 mg/dL (0.2-1.3); BLOOD UREA NITROGEN 15 mg/dL (7-20); CALCIUM 9.5 mg/dL (8.4-10.2); CARBON DIOXIDE 23 mmol/L (22-30); CHLORIDE 98 mmol/L (98-107); GLUCOSE 111 mg/dL (75-110); POTASSIUM 5.3 mmol/L (3.6-5.0); SODIUM 131.5 mmol/L (137-145); TOTAL PROTEIN 6.8 g/dL (6.3-8.2)
[2018-12-28] MEDS ORDERED: SODIUM CHLORIDE 3% FOR INHALATION 15 ML AMPUL NEB ONE (15:50)
[2018-12-28] MEDS: ONDANSETRON HCL INJ/PF 4 MG/2 ML SDV IV PRN (20:21)
[2018-12-28] MEDS: PREGABALIN 50 MG CAPSULE PO SCH (21:51)
[2018-12-29] MEDS: PATIROMER 8.4 GM SUSP PACKET PO SCH ×2 (00:25→16:03)
[2018-12-29] MEDS: SULFAMETHOXAZOLE/TRIMETHOPRIM 480 MG in DEXTROSE 5%-WATER 1000 ML 750 ML IV SCH ×5 (00:25→23:45)
[2018-12-29] MEDS: CARVEDILOL 12.5 MG TABLET PO SCH ×2 (10:03→22:47)
[2018-12-29] MEDS: PREDNISONE 20 MG TABLET PO SCH ×2 (10:04→18:00)
[2018-12-29] MEDS: RITONAVIR 100 MG TABLET PO SCH (10:04)
[2018-12-29] MEDS: RALTEGRAVIR POTASSIUM 400 MG TABLET PO SCH ×2 (10:04→18:00)
[2018-12-29] MEDS: EMTRICITABINE/TENOFOVIR 200-300 MG TABLET PO SCH (10:04)
[2018-12-29] MEDS: FLUTICASONE/UMECLIDIN/VILANTER 100-62.5-25 MCG/DOSE IH SCH (10:04)
[2018-12-29 12:08] LABS: ABSOLUTE LYMPHOCYTES (AUTO) 0.7 10^3/uL (0.5-4.7); ABSOLUTE MONOCYTES (AUTO) 0.1 10^3/uL (0.1-1.4); ABSOLUTE NEUT (AUTO) 4.5 10^3/uL (1.7-8.2); BASOPHILS % (AUTO) 0.5 % (0-2); EOSINOPHILS % (AUTO) 0.1 % (0-6); HEMATOCRIT 36.8 % (36.0-47.0); HEMOGLOBIN 12.3 g/dL (12.0-15.5); MEAN CORPUSCULAR HEMOGLOBIN 27.9 pg (27.0-33.4); MEAN CORPUSCULAR HGB CONC 33.3 g/dL (32.0-36.0); MEAN CORPUSCULAR VOLUME 84 fl (80-97); PLATELET COUNT 255 10^3/uL (150-450); RED BLOOD COUNT 4.39 10^6/uL (3.72-5.28); RED CELL DISTRIBUTION WIDTH 13.8 % (11.5-14.0); SEGMENTED NEUTROPHILS % (AUTO) 85.4 % (42-78); TOTAL CELLS COUNTED % (AUTO) 100 %; WHITE BLOOD COUNT 5.3 10^3/uL (4.0-10.5)
[2018-12-29 12:30] LABS: ALANINE AMINOTRANSFERASE 27 U/L (9-52); ALBUMIN 3.6 g/dL (3.5-5.0); ALKALINE PHOSPHATASE 43 U/L (38-126); ANION GAP 10 (5-19); ASPARTATE AMINO TRANSFERASE 20 U/L (14-36); BILIRUBIN,DIRECT 0.2 mg/dL (0.0-0.4); BILIRUBIN,TOTAL 0.3 mg/dL (0.2-1.3); BLOOD UREA NITROGEN 16 mg/dL (7-20); CALCIUM 9.5 mg/dL (8.4-10.2); CARBON DIOXIDE 23 mmol/L (22-30); CHLORIDE 98 mmol/L (98-107); GLUCOSE 108 mg/dL (75-110); SODIUM 130.6 mmol/L (137-145); TOTAL PROTEIN 6.9 g/dL (6.3-8.2)
--- NOTE | 2018-12-29 20:30 | PDOC PROGRESS REPORT ---
Subjective Progress Note for:: 12/29/18 Subjective:: Patient was seen today by the bedside, she has no new complaints, presently on relatively high dosages of intravenous Bactrim, the recommended duration for the treatment of suspected or confirmed PCP pneumonia is three weeks , patient could probably transition to p.o. Bactrim, I am very uncomfortable giving the p.o. equivalent dose of Bactrim as this may provoke GI symptoms which could lead to patient unable to tolerate the medication that she urgently needs to kill the PCP pathogens, this was explained to the patient ,this is her second week of therapy hopefully I will transitioned the medication to p.o. by the end of the week and hopefully discharge her home by Saturday. She also need PCP prophylaxis with Bactrim about 3 times a week until CD4 count is above 200 Reason For Visit: PCP PNEUMONIA,ACUTE HYPOXEMIC RESPIRATORY FAILURE Physical Exam Vital Signs: Temp Pulse Resp BP Pulse Ox 98.3 F 54 L 24 H 138/86 H 92 12/29/18 15:55 12/29/18 15:55 12/29/18 15:55 12/29/18 15:55 12/29/18 15:55 Intake & Output 12/28/18 12/29/18 12/30/18 06:59 06:59 06:59 Intake Total 6110 4450 2650 Balance 6110 4450 2650 Weight 100.1 kg 99.4 kg General appearance: PRESENT: no acute distress Eye exam: PRESENT: PERRLA Respiratory exam: PRESENT: clear to auscultation gael, crackles Cardiovascular exam: PRESENT: +S1, +S2 Neurological exam: PRESENT: alert Results Laboratory Results: 12/29/18 11:57 12/29/18 11:57 12/29/18 12/29/18 11:57 11:57 WBC 5.3 RBC 4.39 Hgb 12.3 Hct 36.8 MCV 84 MCH 27.9 MCHC 33.3 RDW 13.8 Plt Count 255 Seg Neutrophils % 85.4 H Lymphocytes % 13.0 Monocytes % 1.0 L Eosinophils % 0.1 Basophils % 0.5 Absolute Neutrophils 4.5 Absolute Lymphocytes 0.7 Absolute Monocytes 0.1 Absolute Eosinophils 0.0 Absolute Basophils 0.0 Sodium 130.6 L Potassium 5.0 Chloride 98 Carbon Dioxide 23 Anion Gap 10 BUN 16 Creatinine 0.88 Est GFR ( Amer) > 60 Est GFR (Non-Af Amer) > 60 Glucose 108 Calcium 9.5 Total Bilirubin 0.3 AST 20 ALT 27 Alkaline Phosphatase 43 Total Protein 6.9 Albumin 3.6 12/18/18 12/19/18 22:30 00:09 Troponin I Cancelled 0.018 NT-Pro-B Natriuret Pep Cancelled 1200 H Impressions: Chest CT 12/18/18 23:04 IMPRESSION: Little change from the 11/28/2018 exam. Extensive mixed interstitial and airspace opacities bilaterally. Given the chronicity of findings, findings could reflect nonspecific interstitial pneumonitis, hypersensitivity pneumonitis, sarcoidosis, with other etiologies not excluded. 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 prednisone (3) HIV (human immunodeficiency virus infection) Qualifiers: HIV symptom status: symptomatic Qualified Code(s): B20 - Human immunodeficiency virus [HIV] disease Is this a current diagnosis for this admission?: Yes Plan: Patient has not been taking any anti-retroviral agent for many months now so clearly she is immunosuppressed at this point we could not obtain the last medication that she was on for the HIV infection so she will continue combination nucleoside reverse transcriptase inhibitors,in this hospital, Emtricitabine and tenofovir is formulary that is the background treatment for HIV infection in addition to Proteus inhibitor or integrates inhibitor, in this hospital raltegravir is formulary this will be boosted with ritonavir
--- NOTE | 2018-12-29 21:40 | RADIOLOGY REPORT (SQ) ---
EXAM DESCRIPTION: XR CHEST 1 VIEW COMPLETED DATE/TME: 12/29/2018 00:00 CLINICAL HISTORY: 53 years, Female, pneumonia COMPARISON: 12/24/2018 chest x-ray NUMBER OF VIEWS: 1 TECHNIQUE: Portable chest LIMITATIONS: None. FINDINGS: Stable cardiomegaly. Suspected retrocardiac airspace opacity. Improved aeration is otherwise present bilaterally. No pneumothorax IMPRESSION: Stable cardiomegaly. Persistent retrocardiac airspace opacity.. copyright 2010 [employer]- All Rights Reserved
[2018-12-29] MEDS: PREGABALIN 50 MG CAPSULE PO SCH (22:46)
[2018-12-30] MEDS: SULFAMETHOXAZOLE/TRIMETHOPRIM 480 MG in DEXTROSE 5%-WATER 1000 ML 750 ML IV SCH ×4 (05:53→23:20)
[2018-12-30] MEDS ORDERED: PREDNISONE 10 MG TABLET PO SCH (10:00)
[2018-12-30] MEDS: ONDANSETRON HCL INJ/PF 4 MG/2 ML SDV IV PRN ×2 (10:34→17:13)
[2018-12-30] MEDS: CARVEDILOL 12.5 MG TABLET PO SCH ×2 (10:35→21:21)
[2018-12-30] MEDS: PREDNISONE 10 MG TABLET PO SCH (10:36)
[2018-12-30] MEDS: EMTRICITABINE/TENOFOVIR 200-300 MG TABLET PO SCH (10:37)
[2018-12-30] MEDS: RITONAVIR 100 MG TABLET PO SCH (10:37)
[2018-12-30] MEDS: RALTEGRAVIR POTASSIUM 400 MG TABLET PO SCH ×2 (10:37→17:14)
[2018-12-30] MEDS: FLUTICASONE/UMECLIDIN/VILANTER 100-62.5-25 MCG/DOSE IH SCH (10:38)
[2018-12-30 12:26] LABS: ABSOLUTE LYMPHOCYTES (AUTO) 0.8 10^3/uL (0.5-4.7); ABSOLUTE MONOCYTES (AUTO) 0.1 10^3/uL (0.1-1.4); ABSOLUTE NEUT (AUTO) 3.4 10^3/uL (1.7-8.2); BASOPHILS % (AUTO) 0.2 % (0-2); HEMATOCRIT 35.2 % (36.0-47.0); LYMPHOCYTES % (AUTO) 18.5 % (13-45); MEAN CORPUSCULAR HEMOGLOBIN 28.3 pg (27.0-33.4); MEAN CORPUSCULAR VOLUME 83 fl (80-97); MONOCYTES % (AUTO) 1.5 % (3-13); PLATELET COUNT 246 10^3/uL (150-450); RED BLOOD COUNT 4.22 10^6/uL (3.72-5.28); RED CELL DISTRIBUTION WIDTH 13.7 % (11.5-14.0); SEGMENTED NEUTROPHILS % (AUTO) 79.8 % (42-78); TOTAL CELLS COUNTED % (AUTO) 100 %; WHITE BLOOD COUNT 4.2 10^3/uL (4.0-10.5)
[2018-12-30 12:46] LABS: ALANINE AMINOTRANSFERASE 26 U/L (9-52); ALBUMIN 3.5 g/dL (3.5-5.0); ALKALINE PHOSPHATASE 43 U/L (38-126); ANION GAP 12 (5-19); ASPARTATE AMINO TRANSFERASE 20 U/L (14-36); BILIRUBIN,DIRECT 0.1 mg/dL (0.0-0.4); BILIRUBIN,TOTAL 0.2 mg/dL (0.2-1.3); BLOOD UREA NITROGEN 16 mg/dL (7-20); CALCIUM 9.3 mg/dL (8.4-10.2); CARBON DIOXIDE 23 mmol/L (22-30); CHLORIDE 97 mmol/L (98-107); GLUCOSE 110 mg/dL (75-110); POTASSIUM 4.7 mmol/L (3.6-5.0); SODIUM 131.7 mmol/L (137-145); TOTAL PROTEIN 6.7 g/dL (6.3-8.2)
--- NOTE | 2018-12-30 17:01 | Progress Note ---
Provider Note Provider Note: ID Consult Note Asked by Pharmacy to review patient's chart. Pt not seen or examined. Ms Snyder is a 53 year old woman with HIV/AIDS who was admitted on 12/18/18 with complaint of SOB. She has had respiratory symptoms for the past 4 weeks. She has not been on ART for at least 3 months. Per H&P, pt has history of virologic failure with Atripla. She had coarse breath sounds on admission exam and was hypoxic initially. She had blood cultures that were negative. No sputum or bronchoscopy with BAL. CD4 count was 35 and CD4 percentage was only 6%. HIV PCR 6990 copies/mL. CT of the chest showed extensive ground glass opacities b/l and diffuse interstitial changes. She has been receiving IV Bactrim since 12/20/17. She was also started on Isentress, Norvir, and Truvada. She has been receiving adjunctive steroids. Impression/Recommendations 1. PJP pneumonia - Agree, this is PJP pneumonia most likely; she is being presumptively treated. No definitive diagnosis was made but presentation (AIDS, diffuse b/l GGO and hypoxia, subacute duration of sx) is compatible. She is on day 11 of Bactrim. If pt able to take PO consistently can attempt switch to PO Bactrim DS 3 tab TID to complete the remainder of treatment (10 more days or 21 days duration). - Adjunctive steroids: Would give prednisone 20 mg daily PO for days 11-21 of treatment. 2. HIV/AIDS - Agree, after completing treatment dose Bactrim, she needs prophylaxis with Bactrim, which can be given as 1 Bactrim DS MWF or Bactrim 1 DS daily - CD4 count being <50, she also would likely need azithromycin 1200 mg once weekly (can be divided up as 600 mg on one day of the week and 600 mg on another day of the week if better tolerated like that, e.g. Saturday and Saturday), as long as there is no clinical suggestion of disseminated MAC. Based on chart review, disseminated MAC does not appear to be likely. - Pt would need repeat HIV viral load in about 4-6 weeks of starting Isentress/Truvada to ensure appropriate response (ought to have had at least 1 log drop or <700 copies detectable at that point); would couple this with HIV genotype in case she has not had an appropriate response, to help guide further treatment - Recommend discontinuing Norvir. Isentress does not require boosting. It is not a CYP substrate. Norvir is not augmenting therapy and might contribute to GI side effects. - Pt has never been seen by [facility]. She had one inpatient admission 18 years ago at [facility] (now [facility]), but that is all the contact Ms Snyder has had in our health system. If she wishes to follow up with [facility], please refer patient. If [place] would be closer and therefore easier for pt to attend appointments, please consider referral there. Rene Romo MD [facility] pager [phone]
--- NOTE | 2018-12-30 20:30 | PDOC PROGRESS REPORT ---
Subjective Progress Note for:: 12/30/18 Subjective:: Patient was seen today by the bedside, she has no new complaints, presently on relatively high dosages of intravenous Bactrim, the recommended duration for the treatment of suspected or confirmed PCP pneumonia is three weeks , patient could probably transition to p.o. Bactrim, I am very uncomfortable giving the p.o. equivalent dose of Bactrim as this may provoke GI symptoms which could lead to patient unable to tolerate the medication that she urgently needs to kill the PCP pathogens, this was explained to the patient ,this is her second week of therapy hopefully I will transitioned the medication to p.o. by the end of the week and hopefully discharge her home by Saturday. She also need PCP prophylaxis with Bactrim about 3 times a week until CD4 count is above 200.The chest x-ray that was done today showed improved aeration suggesting that patient is resp onding to treatment as indicated in my previous note from yesterday that I would prefer that she continues IV Bactrim on until the end of the week and then transition to p.o. Bactrim because of the potential for GI side effects. Reason For Visit: PCP PNEUMONIA,ACUTE HYPOXEMIC RESPIRATORY FAILURE Physical Exam Vital Signs: Temp Pulse Resp BP Pulse Ox 97.6 F 73 16 111/63 96 12/30/18 19:28 12/30/18 19:28 12/30/18 19:28 12/30/18 19:28 12/30/18 19:28 Intake & Output 12/29/18 12/30/18 12/31/18 06:59 06:59 06:59 Intake Total 4450 4550 2086 Balance 4450 4550 2086 Weight 99.4 kg 100.6 kg General appearance: PRESENT: no acute distress Eye exam: PRESENT: PERRLA Respiratory exam: PRESENT: clear to auscultation gael Cardiovascular exam: PRESENT: +S1, +S2 GI/Abdominal exam: PRESENT: soft Results Laboratory Results: 12/30/18 12:15 12/30/18 12:15 12/30/18 12/30/18 12:15 12:15 WBC 4.2 RBC 4.22 Hgb 12.0 Hct 35.2 L MCV 83 MCH 28.3 MCHC 34.0 RDW 13.7 Plt Count 246 Seg Neutrophils % 79.8 H Lymphocytes % 18.5 Monocytes % 1.5 L Eosinophils % 0.0 Basophils % 0.2 Absolute Neutrophils 3.4 Absolute Lymphocytes 0.8 Absolute Monocytes 0.1 Absolute Eosinophils 0.0 Absolute Basophils 0.0 Sodium 131.7 L Potassium 4.7 Chloride 97 L Carbon Dioxide 23 Anion Gap 12 BUN 16 Creatinine 1.13 Est GFR ( Amer) > 60 Est GFR (Non-Af Amer) 50 L Glucose 110 Calcium 9.3 Total Bilirubin 0.2 AST 20 ALT 26 Alkaline Phosphatase 43 Total Protein 6.7 Albumin 3.5 12/18/18 12/19/18 22:30 00:09 Troponin I Cancelled 0.018 NT-Pro-B Natriuret Pep Cancelled 1200 H Impressions: Chest CT 12/18/18 23:04 IMPRESSION: Little change from the 11/28/2018 exam. Extensive mixed interstitial and airspace opacities bilaterally. Given the chronicity of findings, findings could reflect nonspecific interstitial pneumonitis, hypersensitivity pneumonitis, sarcoidosis, with other etiologies not excluded. TECHNICAL DOCUMENTATION: Quality ID # 436: Final reports with documentation of one or more dose reduction techniques (e.g., Automated exposure control, adjustment of the mA and/or kV according to patient size, use of iterative reconstruction technique) copyright 2010 [employer]- All Rights Reserved Chest X-Ray 12/29/18 00:00 IMPRESSION: Stable cardiomegaly. Persistent retrocardiac airspace opacity.. 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 prednisone (3) HIV (human immunodeficiency virus infection) Qualifiers: HIV symptom status: symptomatic Qualified Code(s): B20 - Human immunodeficiency virus [HIV] disease Is this a current diagnosis for this admission?: Yes Plan: Patient has not been taking any anti-retroviral agent for many months now so clearly she is immunosuppressed at this point we could not obtain the last medication that she was on for the HIV infection so she will continue combination nucleoside reverse transcriptase inhibitors,in this hospital, Emtricitabine and tenofovir is formulary that is the background treatment for HIV infection in addition to Proteus inhibitor or integrates inhibitor, in this hospital raltegravir is formulary , Patient to be treated with azithromycin 1200 mg weekly for TIMUR prophylaxis because of CD4 counts below 50
[2018-12-30] MEDS ORDERED: AZITHROMYCIN 250 MG TABLET PO SCH (21:00)
[2018-12-30] MEDS: PREGABALIN 50 MG CAPSULE PO SCH (21:22)
[2018-12-31] MEDS ORDERED: ONDANSETRON HCL INJ/PF 4 MG/2 ML SDV ONE (00:51)
[2018-12-31] MEDS: ONDANSETRON HCL INJ/PF 4 MG/2 ML SDV IV PRN (01:00)
[2018-12-31] MEDS: PATIROMER 8.4 GM SUSP PACKET PO SCH ×2 (04:40→16:55)
[2018-12-31] MEDS: SULFAMETHOXAZOLE/TRIMETHOPRIM 480 MG in DEXTROSE 5%-WATER 1000 ML 750 ML IV SCH ×2 (05:49→12:26)
[2018-12-31] MEDS: EMTRICITABINE/TENOFOVIR 200-300 MG TABLET PO SCH (10:20)
[2018-12-31] MEDS: FLUTICASONE/UMECLIDIN/VILANTER 100-62.5-25 MCG/DOSE IH SCH (10:20)
[2018-12-31] MEDS: PREDNISONE 10 MG TABLET PO SCH (10:22)
[2018-12-31] MEDS: RALTEGRAVIR POTASSIUM 400 MG TABLET PO SCH ×2 (10:22→17:03)
[2018-12-31] MEDS: CARVEDILOL 12.5 MG TABLET PO SCH ×2 (10:23→22:30)
[2018-12-31 12:05] LABS: ABSOLUTE LYMPHOCYTES (AUTO) 0.6 10^3/uL (0.5-4.7); ABSOLUTE MONOCYTES (AUTO) 0.1 10^3/uL (0.1-1.4); ABSOLUTE NEUT (AUTO) 2.7 10^3/uL (1.7-8.2); BASOPHILS % (AUTO) 0.1 % (0-2); EOSINOPHILS % (AUTO) 0.2 % (0-6); HEMATOCRIT 33.8 % (36.0-47.0); HEMOGLOBIN 11.7 g/dL (12.0-15.5); LYMPHOCYTES % (AUTO) 18.9 % (13-45); MEAN CORPUSCULAR HEMOGLOBIN 28.4 pg (27.0-33.4); MEAN CORPUSCULAR HGB CONC 34.5 g/dL (32.0-36.0); MEAN CORPUSCULAR VOLUME 82 fl (80-97); MONOCYTES % (AUTO) 1.9 % (3-13); PLATELET COUNT 210 10^3/uL (150-450); RED BLOOD COUNT 4.12 10^6/uL (3.72-5.28); RED CELL DISTRIBUTION WIDTH 13.6 % (11.5-14.0); SEGMENTED NEUTROPHILS % (AUTO) 78.9 % (42-78); TOTAL CELLS COUNTED % (AUTO) 100 %; WHITE BLOOD COUNT 3.4 10^3/uL (4.0-10.5)
[2018-12-31 12:32] LABS: ALANINE AMINOTRANSFERASE 22 U/L (9-52); ALBUMIN 3.3 g/dL (3.5-5.0); ALKALINE PHOSPHATASE 44 U/L (38-126); ANION GAP 10 (5-19); ASPARTATE AMINO TRANSFERASE 21 U/L (14-36); BILIRUBIN,DIRECT 0.1 mg/dL (0.0-0.4); BILIRUBIN,TOTAL 0.3 mg/dL (0.2-1.3); BLOOD UREA NITROGEN 16 mg/dL (7-20); CALCIUM 9.3 mg/dL (8.4-10.2); CARBON DIOXIDE 25 mmol/L (22-30); CHLORIDE 94 mmol/L (98-107); GLUCOSE 99 mg/dL (75-110); POTASSIUM 5.1 mmol/L (3.6-5.0); SODIUM 129.1 mmol/L (137-145); TOTAL PROTEIN 6.3 g/dL (6.3-8.2)
--- NOTE | 2018-12-31 16:27 | PDOC PROGRESS REPORT ---
Subjective Progress Note for:: 12/31/18 Subjective:: Patient seen by the bedside, she continues to improve Reason For Visit: PCP PNEUMONIA,ACUTE HYPOXEMIC RESPIRATORY FAILURE Physical Exam Vital Signs: Temp Pulse Resp BP Pulse Ox 98.4 F 71 16 108/67 97 12/31/18 11:26 12/31/18 11:26 12/31/18 11:26 12/31/18 11:26 12/31/18 11:26 Intake & Output 12/30/18 12/31/18 01/01/19 06:59 06:59 06:59 Intake Total 4550 4186 1372 Balance 4550 4186 1372 Weight 100.6 kg 100.6 kg General appearance: PRESENT: no acute distress Eye exam: PRESENT: PERRLA Respiratory exam: PRESENT: clear to auscultation gael Cardiovascular exam: PRESENT: +S1, +S2 GI/Abdominal exam: PRESENT: soft Neurological exam: PRESENT: alert Results Laboratory Results: 12/31/18 11:54 12/31/18 11:54 12/31/18 12/31/18 11:54 11:54 WBC 3.4 L RBC 4.12 Hgb 11.7 L Hct 33.8 L MCV 82 MCH 28.4 MCHC 34.5 RDW 13.6 Plt Count 210 Seg Neutrophils % 78.9 H Lymphocytes % 18.9 Monocytes % 1.9 L Eosinophils % 0.2 Basophils % 0.1 Absolute Neutrophils 2.7 Absolute Lymphocytes 0.6 Absolute Monocytes 0.1 Absolute Eosinophils 0.0 Absolute Basophils 0.0 Sodium 129.1 L Potassium 5.1 H Chloride 94 L Carbon Dioxide 25 Anion Gap 10 BUN 16 Creatinine 0.95 Est GFR ( Amer) > 60 Est GFR (Non-Af Amer) > 60 Glucose 99 Calcium 9.3 Total Bilirubin 0.3 AST 21 ALT 22 Alkaline Phosphatase 44 Total Protein 6.3 Albumin 3.3 L 12/18/18 12/19/18 22:30 00:09 Troponin I Cancelled 0.018 NT-Pro-B Natriuret Pep Cancelled 1200 H Impressions: Chest CT 12/18/18 23:04 IMPRESSION: Little change from the 11/28/2018 exam. Extensive mixed interstitial and airspace opacities bilaterally. Given the chronicity of findings, findings could reflect nonspecific interstitial pneumonitis, hypersensitivity pneumonitis, sarcoidosis, with other etiologies not excluded. TECHNICAL DOCUMENTATION: Quality ID # [id number]: Final reports with documentation of one or more dose reduction techniques (e.g., Automated exposure control, adjustment of the mA and/or kV according to patient size, use of iterative reconstruction technique) copyright 2010 [employer]- All Rights Reserved Chest X-Ray 12/29/18 00:00 IMPRESSION: Stable cardiomegaly. Persistent retrocardiac airspace opacity.. 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 Bactrim (3) HIV (human immunodeficiency virus infection) Qualifiers: HIV symptom status: symptomatic Qualified Code(s): B20 - Human immunodeficiency virus [HIV] disease Is this a current diagnosis for this admission?: Yes
[2018-12-31] MEDS: SULFAMETHOXAZOLE/TRIMETHOPRIM 800-160 MG TABLET PO SCH (22:29)
[2018-12-31] MEDS: PREGABALIN 50 MG CAPSULE PO SCH (22:30)
[2019-01-01] MEDS: SULFAMETHOXAZOLE/TRIMETHOPRIM 800-160 MG TABLET PO SCH ×3 (05:30→21:53)
[2019-01-01] MEDS: RALTEGRAVIR POTASSIUM 400 MG TABLET PO SCH ×2 (10:19→18:18)
[2019-01-01] MEDS: EMTRICITABINE/TENOFOVIR 200-300 MG TABLET PO SCH (10:19)
[2019-01-01] MEDS: PREDNISONE 10 MG TABLET PO SCH (10:19)
[2019-01-01] MEDS: CARVEDILOL 12.5 MG TABLET PO SCH ×2 (10:19→21:51)
[2019-01-01] MEDS: FLUTICASONE/UMECLIDIN/VILANTER 100-62.5-25 MCG/DOSE IH SCH (10:20)
[2019-01-01] MEDS: ONDANSETRON HCL INJ/PF 4 MG/2 ML SDV IV PRN ×2 (13:12→21:53)
[2019-01-01 14:04] LABS: ABSOLUTE LYMPHOCYTES (AUTO) 0.5 10^3/uL (0.5-4.7); ABSOLUTE MONOCYTES (AUTO) 0.1 10^3/uL (0.1-1.4); ABSOLUTE NEUT (AUTO) 3.7 10^3/uL (1.7-8.2); EOSINOPHILS % (AUTO) 0.2 % (0-6); HEMOGLOBIN 11.7 g/dL (12.0-15.5); LYMPHOCYTES % (AUTO) 12.6 % (13-45); MEAN CORPUSCULAR HEMOGLOBIN 28.1 pg (27.0-33.4); MEAN CORPUSCULAR HGB CONC 33.5 g/dL (32.0-36.0); MEAN CORPUSCULAR VOLUME 84 fl (80-97); MONOCYTES % (AUTO) 1.9 % (3-13); PLATELET COUNT 183 10^3/uL (150-450); RED BLOOD COUNT 4.18 10^6/uL (3.72-5.28); RED CELL DISTRIBUTION WIDTH 13.9 % (11.5-14.0); SEGMENTED NEUTROPHILS % (AUTO) 85.3 % (42-78); TOTAL CELLS COUNTED % (AUTO) 100 %; WHITE BLOOD COUNT 4.3 10^3/uL (4.0-10.5)
[2019-01-01 14:24] LABS: ALANINE AMINOTRANSFERASE 22 U/L (9-52); ALBUMIN 3.7 g/dL (3.5-5.0); ALKALINE PHOSPHATASE 44 U/L (38-126); ANION GAP 12 (5-19); ASPARTATE AMINO TRANSFERASE 21 U/L (14-36); BILIRUBIN,DIRECT 0.1 mg/dL (0.0-0.4); BILIRUBIN,TOTAL 0.3 mg/dL (0.2-1.3); BLOOD UREA NITROGEN 18 mg/dL (7-20); CALCIUM 9.5 mg/dL (8.4-10.2); CARBON DIOXIDE 24 mmol/L (22-30); CHLORIDE 95 mmol/L (98-107); GLUCOSE 110 mg/dL (75-110); POTASSIUM 5.1 mmol/L (3.6-5.0); SODIUM 130.6 mmol/L (137-145); TOTAL PROTEIN 6.8 g/dL (6.3-8.2)
--- NOTE | 2019-01-01 17:52 | PDOC PROGRESS REPORT ---
Subjective Progress Note for:: 01/01/19 Subjective:: Patient was seen by the bedside, she complain of nausea, anorexia, on inspection of the oral cavity, she has oral candidiasis consistent with immunosuppression Reason For Visit: PCP PNEUMONIA,ACUTE HYPOXEMIC RESPIRATORY FAILURE Physical Exam Vital Signs: Temp Pulse Resp BP Pulse Ox 98.2 F 56 L 15 118/69 95 01/01/19 15:57 01/01/19 15:57 01/01/19 15:57 01/01/19 15:57 01/01/19 15:57 Intake & Output 12/31/18 01/01/19 01/02/19 06:59 06:59 06:59 Intake Total 4186 1892 Balance 4186 1892 Weight 100.6 kg 100.6 kg General appearance: PRESENT: no acute distress Eye exam: PRESENT: PERRLA Mouth exam: PRESENT: other - Whitish discoloration affecting the oral mucosa Respiratory exam: PRESENT: clear to auscultation gael Cardiovascular exam: PRESENT: +S1, +S2 GI/Abdominal exam: PRESENT: soft Results Laboratory Results: 01/01/19 13:18 01/01/19 13:18 01/01/19 01/01/19 13:18 13:18 WBC 4.3 RBC 4.18 Hgb 11.7 L Hct 35.0 L MCV 84 MCH 28.1 MCHC 33.5 RDW 13.9 Plt Count 183 Seg Neutrophils % 85.3 H Lymphocytes % 12.6 L Monocytes % 1.9 L Eosinophils % 0.2 Basophils % 0.0 Absolute Neutrophils 3.7 Absolute Lymphocytes 0.5 Absolute Monocytes 0.1 Absolute Eosinophils 0.0 Absolute Basophils 0.0 Sodium 130.6 L Potassium 5.1 H Chloride 95 L Carbon Dioxide 24 Anion Gap 12 BUN 18 Creatinine 0.96 Est GFR ( Amer) > 60 Est GFR (Non-Af Amer) > 60 Glucose 110 Calcium 9.5 Total Bilirubin 0.3 AST 21 ALT 22 Alkaline Phosphatase 44 Total Protein 6.8 Albumin 3.7 12/18/18 12/19/18 22:30 00:09 Troponin I Cancelled 0.018 NT-Pro-B Natriuret Pep Cancelled 1200 H Impressions: Chest CT 12/18/18 23:04 IMPRESSION: Little change from the 11/28/2018 exam. Extensive mixed interstitial and airspace opacities bilaterally. Given the chronicity of findings, findings could reflect nonspecific interstitial pneumonitis, hypersensitivity pneumonitis, sarcoidosis, with other etiologies not excluded. TECHNICAL DOCUMENTATION: Quality ID # [id number]: Final reports with documentation of one or more dose reduction techniques (e.g., Automated exposure control, adjustment of the mA and/or kV according to patient size, use of iterative reconstruction technique) copyright 2011 [email or web address]- All Rights Reserved Chest X-Ray 12/29/18 00:00 IMPRESSION: Stable cardiomegaly. Persistent retrocardiac airspace opacity.. 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
[2019-01-01] MEDS: PATIROMER 8.4 GM SUSP PACKET PO SCH (18:18)
[2019-01-01] MEDS: PREGABALIN 50 MG CAPSULE PO SCH (21:52)
[2019-01-02] MEDS: NYSTATIN 500000 UNIT/5 ML UDCUP PO SCH ×4 (06:13→14:15)
[2019-01-02] MEDS: SULFAMETHOXAZOLE/TRIMETHOPRIM 800-160 MG TABLET PO SCH ×2 (06:13→14:15)
[2019-01-02] MEDS: FLUTICASONE/UMECLIDIN/VILANTER 100-62.5-25 MCG/DOSE IH SCH (09:36)
[2019-01-02] MEDS: RALTEGRAVIR POTASSIUM 400 MG TABLET PO SCH (09:37)
[2019-01-02] MEDS: CARVEDILOL 12.5 MG TABLET PO SCH (09:37)
[2019-01-02] MEDS: EMTRICITABINE/TENOFOVIR 200-300 MG TABLET PO SCH (09:37)
[2019-01-02] MEDS: PREDNISONE 10 MG TABLET PO SCH (09:37)
[2019-01-02 12:46] LABS: ABSOLUTE LYMPHOCYTES (AUTO) 0.5 10^3/uL (0.5-4.7); ABSOLUTE MONOCYTES (AUTO) 0.1 10^3/uL (0.1-1.4); ABSOLUTE NEUT (AUTO) 3.9 10^3/uL (1.7-8.2); EOSINOPHILS % (AUTO) 0.2 % (0-6); HEMATOCRIT 32.8 % (36.0-47.0); HEMOGLOBIN 11.1 g/dL (12.0-15.5); LYMPHOCYTES % (AUTO) 10.5 % (13-45); MEAN CORPUSCULAR HEMOGLOBIN 28.1 pg (27.0-33.4); MEAN CORPUSCULAR HGB CONC 33.9 g/dL (32.0-36.0); MEAN CORPUSCULAR VOLUME 83 fl (80-97); MONOCYTES % (AUTO) 2.4 % (3-13); PLATELET COUNT 132 10^3/uL (150-450); RED BLOOD COUNT 3.97 10^6/uL (3.72-5.28); RED CELL DISTRIBUTION WIDTH 13.7 % (11.5-14.0); SEGMENTED NEUTROPHILS % (AUTO) 86.9 % (42-78); TOTAL CELLS COUNTED % (AUTO) 100 %; WHITE BLOOD COUNT 4.5 10^3/uL (4.0-10.5)
[2019-01-02 13:03] LABS: ALANINE AMINOTRANSFERASE 16 U/L (9-52); ALBUMIN 3.5 g/dL (3.5-5.0); ALKALINE PHOSPHATASE 43 U/L (38-126); ANION GAP 12 (5-19); ASPARTATE AMINO TRANSFERASE 18 U/L (14-36); BILIRUBIN,DIRECT 0.3 mg/dL (0.0-0.4); BILIRUBIN,TOTAL 0.3 mg/dL (0.2-1.3); BLOOD UREA NITROGEN 20 mg/dL (7-20); CALCIUM 9.2 mg/dL (8.4-10.2); CARBON DIOXIDE 22 mmol/L (22-30); CHLORIDE 96 mmol/L (98-107); GLUCOSE 134 mg/dL (75-110); POTASSIUM 4.9 mmol/L (3.6-5.0); SODIUM 129.5 mmol/L (137-145); TOTAL PROTEIN 6.5 g/dL (6.3-8.2)
[2019-01-02] MEDS: ONDANSETRON HCL INJ/PF 4 MG/2 ML SDV IV PRN (16:55)
[2019-01-02 20:14] VITALS: BP 127/71
--- NOTE | 2019-01-02 20:39 | PDOC DISCHARGE SUMMARY ---
General - Admit/Disc Date/PCP Admission Date/Primary Care Provider: 12/19/18 20:06 MARLENE SHETTY MD Discharge Date: 01/02/19 - Discharge Diagnosis (1) Acute hypoxemic respiratory failure Is this a current diagnosis for this admission?: Yes (2) PCP (pneumocystis jiroveci pneumonia) Is this a current diagnosis for this admission?: Yes (3) HIV (human immunodeficiency virus infection) Is this a current diagnosis for this admission?: Yes (4) Oral candidiasis Is this a current diagnosis for this admission?: Yes (5) Vulvovaginal candidiasis Is this a current diagnosis for this admission?: Yes - Additional Information Resuscitation Status: Full Code Discharge Diet: As Tolerated, Cardiac Discharge Activity: Activity As Tolerated, Slowly Increase Activity Prescriptions: Azithromycin [Zithromax 250 mg Tablet] 1,250 mg PO Q7D #4 tablet Emtricitabine/Tenofovir [Truvada Tablet] 1 tab PO DAILY #30 tablet Fluconazole [Diflucan] 200 mg PO DAILY #14 tablet Nystatin [Mycostatin 500,000 Unit/5 ml Susp Udcup] 500,000 unit PO QID #120 udc Prednisone [Deltasone 10 mg Tablet] 10 mg PO DAILY #5 tablet Raltegravir Potassium [Isentress 400 mg Tablet] 400 mg PO BID #60 tablet Sulfamethoxazole/Trimethoprim [Septra-Ds 800-160 mg Tablet] 3 tab PO Q8 #90 tablet Home Medications: Albuterol Sulfate [Proair HFA Inhalation Aerosol 8.5 gm MDI] 2 puff IH Q6HP PRN 12/19/18 Fluticasone/Umeclidin/Vilanter [Trelegy 100-62.5-25 Mcg Ellipta 14 Dose/Dpi] 1 each PO DAILYP PRN 12/19/18 Oxycodone HCl/Acetaminophen [Percocet 10-325 mg Tablet] 1 each PO TIDP PRN 12/19/18 Pregabalin [Lyrica 50 mg Capsule] 50 mg PO DAILYP PRN 12/19/18 Pregabalin [Lyrica 50 mg Capsule] 50 mg PO QHS 12/19/18 Azithromycin [Zithromax 250 mg Tablet] 1,250 mg PO Q7D #4 tablet 01/02/19 Carvedilol [Coreg 25 mg Tablet] 1 tab PO BID #60 01/02/19 Emtricitabine/Tenofovir [Truvada Tablet] 1 tab PO DAILY #30 tablet 01/02/19 Fluconazole [Diflucan] 200 mg PO DAILY #14 tablet 01/02/19 Nystatin [Mycostatin 500,000 Unit/5 ml Susp Udcup] 500,000 unit PO QID #120 udc 01/02/19 Prednisone [Deltasone 10 mg Tablet] 10 mg PO DAILY #5 tablet 01/02/19 Raltegravir Potassium [Isentress 400 mg Tablet] 400 mg PO BID #60 tablet 01/02/19 Sulfamethoxazole/Trimethoprim [Septra-Ds 800-160 mg Tablet] 3 tab PO Q8 #90 tablet 01/02/19 History of Present Illness History of Present Illness: ZAIRE STEELE is a 53 year old female ,She has HIV disease, she was supposed to be on antiretroviral therapy for HIV but apparently she has not been taking antiretroviral agent for more than 3 months. I saw her in the office about 4 weeks ago when she came for evaluation of respiratory symptoms, she had multiple office visits for evaluation she was treated with various antibiotic including azithromycin, amoxicillin in fact she developed allergy reaction to amoxicillin I saw the patient in the office on multiple occasions for evaluation of respiratory symptoms during one of the evaluation I ordered a CT chest, CT chest demonstrated bilateral diffuse parenchymal infiltrate with enlarged lymph nodes in the mediastinum and the hilum, I suspected that she may have sarcoidosis. I thought she was compliant with antiretroviral agent she follows with infectious disease in [place] for the management of the HIV infection. I used to manage her HIV in the office with [facility] but the virus became resistant to the medication with increased HIV RNA titer and decreased CD4 count, at that point the patient was referred to infectious disease for management ,she was initiated on a new medication ,I am not exactly sure what medication she was ,I assume she was following with infectious disease for HIV infection.She came to the office for evaluation of shortness of breath, she was admitted directly to the hospital a repeat CT chest demonstrated bilateral diffuse parenchymal infiltrates no different from the previous CT chest and there was minimal lymph node enlargement. The pharmacy reconciled patient outpatient medication and the reconciled medication does not contain any antiretroviral agents suggesting to me that she has not been compliant the RN ask her directly she admitted not to have been on the medication for more than 3 months. It is very interesting because about 3 weeks ago I asked specifically if she was adherent with antiretroviral agent and she says she was ,so apparently she has not been compliant ,so the diffuse infiltrate on the chest x- ray could represent PCP pneumonia due to immunocompromised condition. The HIV RNA viral load and the T lymphocytes CD4 count is pending the blood gas that was done showed a PO2 of less than 60. Hospital Course Hospital Course: Patient was admitted for the management of acute hypoxemic respiratory failure due to PCP pneumonia, she was treated with IV Bactrim, prednisone, pneumonia was suspected but never confirmed the CD4 count was 35, The HIV RNA titer was 6990. When she was admitted there was diffuse bilateral infiltrate on both lung parenchyma, this was treated successfully, 2 days ago the chest x-ray showed complete resolution of the infiltrates confirming that the etiology of the pneumonia is probably PCP,She developed oral candidiasis and also Jennifer vulvovaginitis, This was treated with oral nystatin solution she discharged home on p.o. Diflucan .Because the T-cell CD4 count was less than 50 she was treated for MAC prophylaxis with azithromycin 1250 mg weekly Physical Exam Vital Signs: Temp Pulse Resp BP Pulse Ox 98.1 F 80 16 127/71 H 96 01/02/19 19:30 01/02/19 19:30 01/02/19 19:30 01/02/19 19:30 01/02/19 19:30 Intake & Output 01/01/19 01/02/19 01/03/19 06:59 06:59 06:59 Intake Total 1892 480 600 Balance 1892 480 600 Weight 100.6 kg 100.6 kg General appearance: PRESENT: no acute distress, well-developed, well-nourished Head exam: PRESENT: atraumatic, normocephalic Eye exam: PRESENT: conjunctiva pink, EOMI, PERRLA Ear exam: PRESENT: normal external ear exam Mouth exam: PRESENT: moist, tongue midline Neck exam: PRESENT: full ROM Respiratory exam: PRESENT: clear to auscultation gael Cardiovascular exam: PRESENT: RRR, +S1, +S2 Vascular exam: PRESENT: normal capillary refill GI/Abdominal exam: PRESENT: normal bowel sounds, soft Rectal exam: PRESENT: deferred Neurological exam: PRESENT: alert, awake, oriented to person, oriented to place, oriented to time, oriented to situation, CN II-XII grossly intact Psychiatric exam: PRESENT: appropriate affect, normal mood Skin exam: PRESENT: dry, intact, warm Results Laboratory Results: 01/02/19 12:28 01/02/19 12:28 01/02/19 01/02/19 12:28 12:28 WBC 4.5 RBC 3.97 Hgb 11.1 L Hct 32.8 L MCV 83 MCH 28.1 MCHC 33.9 RDW 13.7 Plt Count 132 L Seg Neutrophils % 86.9 H Lymphocytes % 10.5 L Monocytes % 2.4 L Eosinophils % 0.2 Basophils % 0.0 Absolute Neutrophils 3.9 Absolute Lymphocytes 0.5 Absolute Monocytes 0.1 Absolute Eosinophils 0.0 Absolute Basophils 0.0 Sodium 129.5 L Potassium 4.9 Chloride 96 L Carbon Dioxide 22 Anion Gap 12 BUN 20 Creatinine 1.05 Est GFR ( Amer) > 60 Est GFR (Non-Af Amer) 55 L Glucose 134 H Calcium 9.2 Total Bilirubin 0.3 AST 18 ALT 16 Alkaline Phosphatase 43 Total Protein 6.5 Albumin 3.5 12/18/18 12/19/18 22:30 00:09 Troponin I Cancelled 0.018 NT-Pro-B Natriuret Pep Cancelled 1200 H Impressions: Chest CT 12/18/18 23:04 IMPRESSION: Little change from the 11/28/2018 exam. Extensive mixed interstitial and airspace opacities bilaterally. Given the chronicity of findings, findings could reflect nonspecific interstitial pneumonitis, hypersensitivity pneumonitis, sarcoidosis, with other etiologies not excluded. TECHNICAL DOCUMENTATION: Quality ID # 436: Final reports with documentation of one or more dose reduction techniques (e.g., Automated exposure control, adjustment of the mA and/or kV according to patient size, use of iterative reconstruction technique) copyright 2010 [employer]- All Rights Reserved Chest X-Ray 12/29/18 00:00 IMPRESSION: Stable cardiomegaly. Persistent retrocardiac airspace opacity.. copyright 2010 [employer]- All Rights Reserved Qualifiers - * PATIENT BEING DISCHARGED WITH ANY OF THE FOLLOWING DIAGNOSIS: No
== END 2019-01-02 20:26 | disposition home or self-care (01) | DRG 974 ==
LOC: ER 17:56 → INTOOBSV 22:06 → OBSVTOIN 22:06 → 5 22:06 → OBSVTOIN 12-19 20:06
PROVIDERS: ADMIT Internal Medicine; ATTEND Internal Medicine
DX: B20 Human immunodeficiency virus [HIV] disease (principal); J96.01 Acute respiratory failure with hypoxia; B59 Pneumocystosis; B37.0 Candidal stomatitis; E87.5 Hyperkalemia; B37.3 Candidiasis of vulva and vagina; I10 Essential (primary) hypertension; J45.909 Unspecified asthma, uncomplicated; Z86.73 Personal history of transient ischemic attack (TIA), and cerebral infarction without residual deficits; Z79.51 Long term (current) use of inhaled steroids; Z79.899 Other long term (current) drug therapy
CPT/HCPCS: 36415; 36600; 71045; 71046; 71250; 80053; 82803; 83880; 84484; 85025; 86355; 86359; 86360; 87040; 87536; 94060; 94727; 94729; 99285; G0378; G0379; J1940; J2405; J3490; J7060; J7512

== ENCOUNTER → 2020-08-23 | Outpatient (CLI) | payer MEDICARE, MEDICAID ==
--- NOTE | 2020-08-23 12:11 | WOMENS IMAGING REPORT ---
EXAM DESCRIPTION: 3D SCREENING MAMMO BILAT IMAGES COMPLETED DATE/TIME: 08/23/2020 11:32 am REASON FOR STUDY: Z12.31 ENCOUNTER FOR SCREENING MAMMOGRAM FOR MALIGNANT NEOPLASM OF BREAST Z12.31 ENCNTR SCREEN MAMMOGRAM FOR MALIGNANT NEOPLASM OF EDNA COMPARISON: Priors dating back to 2014. EXAM PARAMETERS: Views: Standard craniocaudal and mediolateral oblique views of each breast recorded using digital acquisition and breast tomosynthesis. Read with the assistance of CAD. .[facility] - R2 [employer] Worker Version 9.2 LIMITATIONS: None. FINDINGS: No suspicious masses, suspicious calcifications or architectural distortion. No areas of c oncern. IMPRESSION: NEGATIVE MAMMOGRAM. BIRADS 1. BREAST DENSITY: b. There are scattered areas of fibroglandular density. BIRAD: ASSESSMENT: 1 NEGATIVE RECOMMENDATION: ROUTINE SCREENING COMMENT: The patient has been notified of the results by letter per MQSA requirements. Additional no tification policies are in place for contacting patient with suspicious or incomplete findings. Quality ID #[id number]: [employer] recommends an annual screening mammogram for women aged 40 years or over. This facility utilizes a reminder system to ensure that all patients receive reminder letters, and/or direct phone calls for appointments. This includes reminders for routine scr eening mammograms, diagnostic mammograms, or other Breast Imaging Interventions when appropriate. Th is patient will be placed in the appropriate reminder system. TECHNICAL DOCUMENTATION: FINDING NUMBER: (1) ASSESSMENT: (1) JOB ID: [id number] 2010 [employer]- All Rights Reserved Reading location - IP/workstation name: [email or web address]
== END ==
LOC: WI 11:13
PROVIDERS: ATTEND Internal Medicine
DX: Z12.31 Encounter for screening mammogram for malignant neoplasm of breast (principal)
CPT/HCPCS: 77063; 77067